=== PATIENT | female | born 1990 | race Caucasian/White ===

== ENCOUNTER 2024-01-11 13:37 | Outpatient (AMB) | payer OTHER, SELFPAY ==
--- NOTE | 2024-01-11 13:42 | MHC.OFFVIS ---
Vital Signs 01/11/24 13:53 Height 5 ft 7 in Weight 161 lb BMI 25.2 BP 128/70 Blood Pressure Location Lt brachial Position Sitting Respiration 18 Pulse 104 H Pulse Source Pulse Oximeter Pulse Oximetry (%) 100 Oxygen Delivery Method Room Air Intake Visit Reasons: ITDD REFILL DISCUSSION Intake Note: Patient comes in for initial visit was referred by primary care. Reports pain 05/19. Allergies contrast dye Allergy (Uncoded 01/11/24 13:45) Anaphylaxis HPI Comments Details: Oly is very pleasant 33 years old female who presents with my office in complains on pain in the left upper extremity as well as pain in bilateral lower extremities. She reported today that she was diagnose in February of 2019 with Complex regional pain syndrome of the left upper extremity and Complex regional pain syndrome of bilateral lower extremities. 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 She also had prolonged and difficult labor a later on and she developed Complex regional pain syndrome of bilateral lower extremities as the results of this. She was given spinal cord stimulator Polyplus-transfection which is not working now. Apparently she has 1 electrode in the cervical spine in 1 electrode in the lumbar spine. She denied any help from SCS. She also for the treatment of her pain received intrathecal drug delivery system pain pump she reports that the pain pump catheter is positioned approximately T5 level. She today presented as a new patient in my office with only 3 cc left in her pain pump. She is currently he is on 0.25 mg of morphine in the pump. She is working full-time. She can not sleep normally can not do activities of daily living can not take care of herself and can not function normally because of her pain. Weather changes in movements aggravate her pain. Sometimes heat applications help her pain. The pain is most severe in the evening and less severe in the morning. In terms of tissue damage he reports her pain as pulsing and pounding, pinching and crushing, hot burning and searing, tingling and stinging, dull, hurting, heavy, tiring and exhausting, sickening suffocating, punishing and killing, cool, called, freezing sensation. Her past medical history significant for history of asthma and dysrhythmia she also was diagnosed with ovarian cyst. Her past surgical history significant for hysterectomy pain pump implantation in 2021 and spinal cord stimulation 2016 and 2020. She denies smoking cigarettes she denies drinking alcohol she admits caffeinated beverages she denies recreational drugs. She has currently on not any oral opioid medications source or any schedule II medication. Review of Systems Const All systems reviewed & are unremarkable except as noted in HPI and below ENT Reports Normal hearing present Neuro Reports Normal hearing present, Denies Abnormal speech present, Denies confusion and Denies Sensory deficit (Neuro) Psych Denies confusion Physical Exam Vital Signs: Last Vital Signs Pulse 104 H 01/11/24 13:53 Resp 18 01/11/24 13:53 BP 128/70 01/11/24 13:53 Pulse Ox 100 01/11/24 13:53 Oxygen Delivery Method Room Air 01/11/24 13:53 BMI result Body Mass Index 25.2 Const General: no acute distress; No confusion Orientation/consciousness: patient oriented x3 and No confusion Eyes General: appearance normal, both eyes and all related structures Pupils: Equal, round and reactive pupils present EOM: EOMs intact bilaterally Neck Neck: Yes full ROM Chest Chest palpation & inspection: normal inspection of the chest Resp Effort & Inspection: normal respiratory effort, able to speak in complete sentences, normal respiratory pattern, no audible wheezes and no cough Cardio Jugular venous distension: no JVD GI Inspection: Yes normal to inspection Neuro General: patient oriented x3, gait normal and No confusion Cranial nerves: Yes CN's II-XII intact bilaterally, Yes Equal, round and reactive pupils present, Yes Normal hearing present and Yes Ability to bilaterally elevate shoulders present Speech: No Abnormal speech present Gait exam (Neuro): Normal gait present Motor exam (neuro): 5/5 motor strength present throughout Sensory Exam: No Sensory deficit (Neuro) Extrem General: No pedal edema Psych Speech and movement: Normal speech and movement present Affect: normal affect Attitude: cooperative Thought process: Normal thought process present Thought content: Normal thought content present Insight: Good insight present (Psych) Judgement: Good judgement present (Psych) Assessment & Plan Assessment & Plan (1) Complex regional pain syndrome i of lower limb, bilateral: Code(s): G90.523 - Complex regional pain syndrome I of lower limb, bilateral Category: Medical (2) Complex regional pain syndrome i of left upper limb: Code(s): G90.512 - Complex regional pain syndrome I of left upper limb Category: Medical (3) Chronic pain syndrome: Code(s): G89.4 - Chronic pain syndrome Category: Medical (4) Implantable intrathecal infusion pump present: Code(s): Z96.89 - Presence of other specified functional implants Category: Medical Plan I will schedule this patient for pump refill annette. She is running out of the medication so we need to fill her medication up. She reports that she receives medication at her current location once in 6 months. This is absolutely unacceptable. I informed the patient that at the best we will be able to refill her pump once in 2-3 months. I will see this patient for the pump refill. Coding Level of Care Code Est Pt Level 3 (99338) Diagnoses Complex regional pain syndrome i of lower limb, bilateral G90.523 Complex regional pain syndrome i of left upper limb G90.512 Chronic pain syndrome G89.4 Implantable intrathecal infusion pump present Z96.89
[2024-01-11 13:53] VITALS: BP 128/70; PULSE 104; RESP 18; O2SAT 100; BMI 25.2
== END 2024-01-11 14:06 | disposition home or self-care (01) ==
PROVIDERS: Visit Provider Anesthesiology
DX: G90.523 Complex regional pain syndrome I of lower limb, bilateral (principal); G90.512 Complex regional pain syndrome I of left upper limb; G89.4 Chronic pain syndrome; Z96.89 Presence of other specified functional implants
CPT/HCPCS: 99203

== ENCOUNTER → 2024-01-11 13:37 | Outpatient (BNVA) | payer OTHER, SELFPAY | PROVIDERS: Visit Provider Anesthesiology ==

== ENCOUNTER 2024-01-14 08:52 | Outpatient (AMB) | payer OTHER, SELFPAY ==
--- NOTE | 2024-01-14 09:10 | MHC.OFFVIS ---
Vital Signs 01/14/24 09:21 Height 5 ft 7 in Weight 161 lb BMI 25.2 BP 122/72 Blood Pressure Location Lt brachial Position Sitting Respiration 16 Pulse 106 H Pulse Source Pulse Oximeter Pulse Oximetry (%) 99 Oxygen Delivery Method Room Air Intake Visit Reasons: ITDD refill Intake Note: Patient comes in for intrathecal medication refill. Reports pain 05/19. Allergies contrast dye Allergy (Uncoded 01/11/24 13:45) Anaphylaxis HPI Comments Details: Oly is very pleasant 33 years old female who presents with my office in complains on pain in the left upper extremity as well as pain in bilateral lower extremities. Diagnosis of Complex regional pain syndrome of the left upper extremity and Complex regional pain syndrome of bilateral lower extremities was established in 2019. Left upper extremity CRPS is secondary to work trauma, bilateral lower extremity Complex regional pain syndrome developed after prolonged vaginal delivery. She has not working [employer] spinal cord stimulator 1 lead in the cervical and 1 lead in the thoracic spine. She reports good pain control in the beginning of the time after the refill however she reports fading of the effect of the medicine closer to the next refill. She stated that she was refilled once in 6 months back in [place] where she was residing before she came here. I DDD discussed today, the pump was refilled today, the dose was increased 36%, the patient is recommended to contact [employer] reps. to schedule restart of the [employer] SCS and try DTM protocol. She also will be given personal group therapy counselor device to handle the opioids in the pain pump better. Review of Systems Const All systems reviewed & are unremarkable except as noted in HPI and below ENT Reports Normal hearing present Neuro Reports Normal hearing present, Denies Abnormal speech present, Denies confusion and Denies Sensory deficit (Neuro) Psych Denies confusion Physical Exam Vital Signs: Last Vital Signs Pulse 106 H 01/14/24 09:21 Resp 16 01/14/24 09:21 BP 122/72 01/14/24 09:21 Pulse Ox 99 01/14/24 09:21 Oxygen Delivery Method Room Air 01/14/24 09:21 BMI result Body Mass Index 25.2 Const General: no acute distress; No confusion Orientation/consciousness: patient oriented x3 and No confusion Eyes General: appearance normal, both eyes and all related structures Pupils: Equal, round and reactive pupils present EOM: EOMs intact bilaterally Neck Neck: Yes full ROM Chest Chest palpation & inspection: normal inspection of the chest Resp Effort & Inspection: normal respiratory effort, able to speak in complete sentences, normal respiratory pattern, no audible wheezes and no cough Cardio Jugular venous distension: no JVD GI Inspection: Yes normal to inspection Neuro General: patient oriented x3, gait normal and No confusion Cranial nerves: Yes CN's II-XII intact bilaterally, Yes Equal, round and reactive pupils present, Yes Normal hearing present and Yes Ability to bilaterally elevate shoulders present Speech: No Abnormal speech present Gait exam (Neuro): Normal gait present Motor exam (neuro): 5/5 motor strength present throughout Sensory Exam: No Sensory deficit (Neuro) Extrem General: No pedal edema Psych Speech and movement: Normal speech and movement present Affect: normal affect Attitude: cooperative Thought process: Normal thought process present Thought content: Normal thought content present Insight: Good insight present (Psych) Judgement: Good judgement present (Psych) Assessment & Plan Assessment & Plan (1) Complex regional pain syndrome i of lower limb, bilateral: Code(s): G90.523 - Complex regional pain syndrome I of lower limb, bilateral Category: Medical (2) Complex regional pain syndrome i of left upper limb: Code(s): G90.512 - Complex regional pain syndrome I of left upper limb Category: Medical (3) Chronic pain syndrome: Code(s): G89.4 - Chronic pain syndrome Category: Medical Plan: Intrathecal pain pump refill Patient presented to the office today?for refill of ITDDD medication The name and date of were verified and informed consent was obtained for the procedure. Time out completed prior to the procedure. The pump was interrogated and the residual amount of fluid was found to be 3.4 ml. Patient was assisted to the exam table and positioned prone.? The area of the intrathecal drug delivery device at right upper buttock exposed; Ultrasound probe applied over the area of the pump, central refill port identified and marked on the skin.?THE AREA OF THE INTRATHECAL PUMP WAS then PREPPED WITH CHLORAPREP.? The sterile fenestrated drape was applied over the area of the pump. Sterile gloves were worn and of the aspiration system was assembled containing 2in 22gauge non-coring needle, the needle was connected to extension tubing which was connected to a 20cc sterile syringe. The pain pump was then palpated under the skin in the patient's right buttock area. The needle was inserted through the skin into the central plug of the pain pump and clear fluid was aspirated.? A total of 2.2 mL of clear fluid was withdrawn into the syringe and discarded by two staff members. [facility] Name and on medication syringe verified with patient prior to instillation. The admixture containing morphine 2 milligrams/mL was compounded by [facility] pharmacy and arrived in a 20cc syringe. The syringe was connected to the bacterial filter, and then to the extension tubing. The medication was slowly instilled into the pump with aspirations at 15cc 10cc and 5cc rojas.? At completion the needle was withdrawn and a Band-Aid was applied to the site. The pump was reprogrammed for the doses continuous dose morphine 32719 mg per day, this is 36.1% increase from previous dose of 0.2748 mg per day. The patient tolerated procedure well. (4) Implantable intrathecal infusion pump present: Code(s): Z96.89 - Presence of other specified functional implants Category: Medical Plan The pump is refilled as above. New appointment is scheduled on 04/07/2024. She will be working on DTM protocol and she will be working on obtaining PTM device from [employer]. Coding Level of Care Code Tele Est Pt Level 3 (42994) Procedure Only Diagnoses Complex regional pain syndrome i of lower limb, bilateral G90.523 Complex regional pain syndrome i of left upper limb G90.512 Chronic pain syndrome G89.4 Implantable intrathecal infusion pump present Z96.89
[2024-01-14 09:21] VITALS: BP 122/72; PULSE 106; RESP 16; O2SAT 99; BMI 25.2
== END 2024-01-14 09:53 | disposition home or self-care (01) ==
PROVIDERS: Visit Provider Anesthesiology
DX: G90.523 Complex regional pain syndrome I of lower limb, bilateral (principal); G90.512 Complex regional pain syndrome I of left upper limb; G89.4 Chronic pain syndrome; Z96.89 Presence of other specified functional implants; Z45.1 Encounter for adjustment and management of infusion pump
CPT/HCPCS: 62370; 99213

== ENCOUNTER → 2024-01-14 08:52 | Outpatient (BNVA) | payer OTHER, SELFPAY | PROVIDERS: Visit Provider Anesthesiology | DX: G90.523 Complex regional pain syndrome I of lower limb, bilateral (principal); G90.512 Complex regional pain syndrome I of left upper limb; G89.4 Chronic pain syndrome; Z45.1 Encounter for adjustment and management of infusion pump; Z96.89 Presence of other specified functional implants | CPT/HCPCS: 62370 ==

== ENCOUNTER 2024-04-04 08:24 | Outpatient (AMB) | payer OTHER, SELFPAY ==
--- NOTE | 2024-04-04 08:45 | A.OFFVIS_ITS ---
Vital Signs 04/04/24 08:49 Height 5 ft 7 in Weight 165 lb BMI 25.8 BP 116/65 Blood Pressure Location Lt brachial Position Sitting Respiration 14 Pulse 112 H Pulse Source Pulse Oximeter Pulse Oximetry (%) 93 Oxygen Delivery Method Room Air Intake Visit Reasons: ITDD Refill Allergies contrast dye Allergy (Uncoded 04/04/24 08:51) Anaphylaxis Medication List - Last Reconciled 04/04/24 by Lisbeth Elias LPN cyclobenzaprine 10 mg PO BID PRN meloxicam 7.5 mg PO DAILY 30 days HPI HPI ITDD Refill: Details: 33-year-old female who presents today to the office for a ITDD refill. Denies any recent cough, cold, infection, fever or other significant changes in medical history since last office visit.? Review of Systems Const All systems reviewed & are unremarkable except as noted in HPI and below Physical Exam Vital Signs: Last Vital Signs Pulse 112 H 04/04/24 08:49 Resp 14 04/04/24 08:49 BP 116/65 04/04/24 08:49 Pulse Ox 93 04/04/24 08:49 Oxygen Delivery Method Room Air 04/04/24 08:49 BMI result Body Mass Index 25.8 General: Appears afebrile. Alert and oriented. Mood and affect appropriate. Follows and participates in conversation appropriately. Respiratory effort is unlabored. Able to transition from sit to stand unassisted. Ambulates with bilaterally normal heel strike and toe off. Office Procedures Details: Intra-thecal Pump Refill The name and date of were verified, and informed consent was obtained for the procedure. The pump was interrogated, and the residual amount of fluid was found to be 4 mL. Patient was positioned prone on the bed and the area of the intrathecal pump was prepped with chloraprep. The fenestrated drape was sterilely applied over the area of the pump. Sterile gloves were worn and the aspiration system was assembled containing 2 22-gauge noncoring needle; the needle was connected to extension tubing which was connected to the 20-cc sterile syringe. The extension tubing was clamped. The pain pump was palpated under the skin in the patient's buttock. The needle was inserted through the skin and the central plug of the pain pump and fluid was aspirated. 4 mL of clear fluid were aspirated. After that, a new batch of medication was obtained. Refilled with morphine 2 milligrams per ml. The admixture was premixed in a 20cc syringe by [facility] compounding pharmacy. The syringe was connected to the bacterial filter, and then connected to the extension tubing. After that, the medication in the syringe was slowly instilled into the pump with aspirations at 20ml was refilled. Increased the rate by 6% per 24 hours. The pump was programmed and updated per the latest parameters. The details of this program are available in the pump log that was saved and uploaded to the EMR. 33573 - Refill Procedure code (CPT) selection complete Results Reviewed Results Reviewed: No imaging is available for review. Assessment & Plan Assessment & Plan (1) Implantable intrathecal infusion pump present: Code(s): Z96.89 - Presence of other specified functional implants Category: Medical (2) Chronic pain syndrome: Code(s): G89.4 - Chronic pain syndrome Category: Medical Plan Patient is status post ITDD refill. Patient tolerated procedure well and was discharged home in stable condition with discharge instructions.? All questions were answered. Follow up as needed. Scribed for Dr. Izaguirre by Clovis Bonilla, medical assistant dermatology, on 04/04/2024. I, Dr. Izaguirre, have personally reviewed and agree with the information entered by the scribe. Coding Level of Care Code Procedure Only Diagnoses Implantable intrathecal infusion pump present Z96.89 Chronic pain syndrome G89.4 CPT Codes Intraethecal Drug Delivery System - CPT: 01240 - Refill ([id number])
[2024-04-04 08:49] VITALS: BP 116/65; PULSE 112; RESP 14; O2SAT 93; BMI 25.8
== END 2024-04-04 09:29 | disposition home or self-care (01) ==
PROVIDERS: Visit Provider Internal Medicine
DX: Z45.1 Encounter for adjustment and management of infusion pump (principal)
CPT/HCPCS: 62370

== ENCOUNTER → 2024-04-04 08:24 | Outpatient (BNVA) | payer OTHER, SELFPAY | PROVIDERS: Visit Provider Internal Medicine | DX: Z45.1 Encounter for adjustment and management of infusion pump (principal); G89.4 Chronic pain syndrome | CPT/HCPCS: 62370 ==

== ENCOUNTER 2024-06-27 10:46 | Outpatient (AMB) | payer OTHER, SELFPAY ==
--- NOTE | 2024-06-27 10:49 | A.OFFVIS_ITS ---
Vital Signs 06/27/24 10:57 Height 5 ft 7 in Weight 167 lb 4 oz BMI 26.2 BP 111/68 Blood Pressure Location Lt brachial Position Sitting Respiration 16 Pulse 103 H Pulse Source Pulse Oximeter Pulse Oximetry (%) 100 Oxygen Delivery Method Room Air Intake Visit Reasons: ITDD Refill Intake Note: Patient comes in for intrathecal medication refill. Reports pain 05/19. Allergies contrast dye Allergy (Uncoded 04/04/24 08:51) Anaphylaxis HPI Comments Details: Oly is back in my office reporting increased pain in the bilateral lower extremities. She reports that she does not have PTM device. We could have started her on PTM here if [employer] has PTM device available. Otherwise she could purchase the PTM device from [employer] with a without discount. She reports that Complex regional pain syndrome is starting to get stronger. I will send for for EMG of bilateral lower extremities, she had EMG done in the past. I recommended her to bring the results of the EMG to the office of Dr. Goetz to compare. Prior: very pleasant 33 years old female who presents with my office in complains on pain in the left upper extremity as well as pain in bilateral lower extremities. Diagnosis of Complex regional pain syndrome of the left upper extremity and Complex regional pain syndrome of bilateral lower extremities was established in 2019. Left upper extremity CRPS is secondary to work trauma, bilateral lower extremity Complex regional pain syndrome developed after prolonged vaginal delivery. She has working [employer] spinal cord stimulator 1 lead in the cervical and 1 lead in the thoracic spine. She reports good pain control in the beginning of the time after the refill however she reports fading of the effect of the medicine closer to the next refill. She stated that she was refilled once in 6 months back in [place] where she was residing before she came here. I DDD discussed today, the pump was refilled today, the dose was increased 36%, the patient is recommended to contact [employer] reps. to schedule restart of the [employer] SCS and try DTM protocol. She also will be given personal cert occupational therapy asst device to handle the opioids in the pain pump better. Review of Systems Const All systems reviewed & are unremarkable except as noted in HPI and below ENT Reports Normal hearing present Neuro Reports Normal hearing present, Denies Abnormal speech present, Denies confusion and Denies Sensory deficit (Neuro) Psych Denies confusion Physical Exam Vital Signs: Last Vital Signs Pulse 103 H 06/27/24 10:57 Resp 16 06/27/24 10:57 BP 111/68 06/27/24 10:57 Pulse Ox 100 06/27/24 10:57 Oxygen Delivery Method Room Air 06/27/24 10:57 BMI result Body Mass Index 26.2 Const General: no acute distress; No confusion Orientation/consciousness: patient oriented x3 and No confusion Eyes General: appearance normal, both eyes and all related structures Pupils: Equal, round and reactive pupils present EOM: EOMs intact bilaterally Neck Neck: Yes full ROM Chest Chest palpation & inspection: normal inspection of the chest Resp Effort & Inspection: normal respiratory effort, able to speak in complete sentences, normal respiratory pattern, no audible wheezes and no cough Cardio Jugular venous distension: no JVD GI Inspection: Yes normal to inspection Neuro General: patient oriented x3, gait normal and No confusion Cranial nerves: Yes CN's II-XII intact bilaterally, Yes Equal, round and reactive pupils present, Yes Normal hearing present and Yes Ability to bilaterally elevate shoulders present Speech: No Abnormal speech present Gait exam (Neuro): Normal gait present Motor exam (neuro): 5/5 motor strength present throughout Sensory Exam: No Sensory deficit (Neuro) Extrem General: No pedal edema Psych Speech and movement: Normal speech and movement present Affect: normal affect Attitude: cooperative Thought process: Normal thought process present Thought content: Normal thought content present Insight: Good insight present (Psych) Judgement: Good judgement present (Psych) Assessment & Plan Assessment & Plan (1) Complex regional pain syndrome i of lower limb, bilateral: Code(s): G90.523 - Complex regional pain syndrome I of lower limb, bilateral Category: Medical (2) Complex regional pain syndrome i of left upper limb: Code(s): G90.512 - Complex regional pain syndrome I of left upper limb Category: Medical (3) Chronic pain syndrome: Code(s): G89.4 - Chronic pain syndrome Category: Medical Plan: Intrathecal pain pump refill Patient presented to the office today?for refill of ITDDD medication The name and date of were verified and informed consent was obtained for the procedure. Time out completed prior to the procedure. The pump was interrogated and the residual amount of fluid was found to be 3.4 ml. Patient was assisted to the exam table and positioned prone.? The area of the intrathecal drug delivery device at right upper buttock exposed; Ultrasound probe applied over the area of the pump, central refill port identified and marked on the skin.?THE AREA OF THE INTRATHECAL PUMP WAS then PREPPED WITH CHLORAPREP.? The sterile fenestrated drape was applied over the area of the pump. Sterile gloves were worn and of the aspiration system was assembled containing 2in 22gauge non-coring needle, the needle was connected to extension tubing which was connected to a 20cc sterile syringe. The pain pump was then palpated under the skin in the patient's right buttock area. The needle was inserted through the skin into the central plug of the pain pump and clear fluid was aspirated.? A total of 2.4 mL of clear fluid was withdrawn into the syringe and discarded by two staff members. Med[facility]. Name and on medication syringe verified with patient prior to instillation. The admixture containing morphine 2 milligrams/mL was compounded by [facility] pharmacy and arrived in a 20cc syringe. The syringe was connected to the bacterial filter, and then to the extension tubing. The medication was slowly instilled into the pump with aspirations at 15cc 10cc and 5cc rojas.? At completion the needle was withdrawn and a Band-Aid was applied to the site. The pump was reprogrammed for the doses continuous dose morphine 0.3741 mg per day, The patient tolerated procedure well. The new pump refill will be scheduled on 09/22/2024 (4) Implantable intrathecal infusion pump present: Code(s): Z96.89 - Presence of other specified functional implants Category: Medical Plan The pump is refilled as above next pump refill 09/22/2024 Orders: Orders NE electromyogram (EMG) Today G90.523 - Complex regional pain syndrome I of lower limb, bilateral Coding Level of Care Code Est Pt Level 3 (25051) Procedure Only Diagnoses Complex regional pain syndrome i of lower limb, bilateral G90.523 Complex regional pain syndrome i of left upper limb G90.512 Chronic pain syndrome G89.4 Implantable intrathecal infusion pump present Z96.89
[2024-06-27 10:57] VITALS: BP 111/68; PULSE 103; RESP 16; O2SAT 100; BMI 26.2
== END 2024-06-27 11:21 | disposition home or self-care (01) ==
PROVIDERS: Visit Provider Anesthesiology
DX: G90.523 Complex regional pain syndrome I of lower limb, bilateral (principal); G90.512 Complex regional pain syndrome I of left upper limb; G89.4 Chronic pain syndrome; Z96.89 Presence of other specified functional implants; Z45.1 Encounter for adjustment and management of infusion pump
CPT/HCPCS: 62370; 99213

== ENCOUNTER → 2024-06-27 10:46 | Outpatient (BNVA) | payer OTHER, SELFPAY | PROVIDERS: Visit Provider Anesthesiology | DX: Z45.1 Encounter for adjustment and management of infusion pump (principal); G90.523 Complex regional pain syndrome I of lower limb, bilateral; G90.512 Complex regional pain syndrome I of left upper limb; G89.4 Chronic pain syndrome | CPT/HCPCS: 62370 ==

== ENCOUNTER 2024-07-22 13:21 | Outpatient (REF) | payer OTHER, SELFPAY ==
--- NOTE | 2024-07-22 13:26 | EMG_ITS ---
Chief complaint: History of CRPS. Complaining of leg pain and weakness, worse on left. At rest, noted that left foot is inverted. Passive ankle range of motion is full. She has a spinal cord stimulator and morphine pump. Reason for referral: Evaluate for neuropathy Referred by: Dr. Clark Procedure done: Bilateral lower extremity NCS/EMG Precautions and/or limitations: Spinal cord stimulator turned off for this test. The limb temperature was monitored continuously and remained between 32-36 degrees C during the performance of the NCS. Nerve Conduction Studies Anti Sensory Summary Table ?Stim Site NR Onset (ms) Norm Onset (ms) Peak (ms) Norm Peak (ms) O-P Amp (?V) Norm O-P Amp Site1 Site2 Delta-0 (ms) Dist (cm) Leonidas (m/s) Norm Leonidas (m/s) Left Sural Anti Sensory (Lat Mall) Calf ? 3.2 3.9 <4.0 9.9 >5.0 Calf Lat Mall 3.2 14.0 44 Right Sural Anti Sensory (Lat Mall) Calf ? 3.0 3.9 <4.0 16.1 >5.0 Calf Lat Mall 3.0 14.0 47 Motor Summary Table ?Stim Site NR Onset (ms) Norm Onset (ms) O-P Amp (mV) Norm O-P Amp iAmp (mV) Amp (1st) (%) Site1 Site2 Delta-0 (ms) Dist (cm) Leonidas (m/s) Norm Leonidas (m/s) Left Peroneal Motor (Ext Dig Brev) Ankle ? 6.5 <4.0 3.1 >2.5 3.9 100.0 Ankle Ext Dig Brev 6.5 0.0 B Fib ? 14.1 3.1 3.7 100.0 B Fib Ankle 7.6 35.5 47 >40 Poplt ? 14.7 2.7 3.4 87.1 Poplt B Fib 0.6 5.0 83 >40 Right Peroneal Motor (Ext Dig Brev) Ankle ? 5.1 <4.0 4.1 >2.5 5.3 100.0 Ankle Ext Dig Brev 5.1 0.0 B Fib ? 12.3 3.7 4.8 90.2 B Fib Ankle 7.2 34.0 47 >40 Poplt ? 13.4 3.8 5.0 92.7 Poplt B Fib 1.1 6.0 55 >40 Left Tibial Motor (Abd Sheldon Brev) Ankle ? 4.6 <5 6.9 >2.5 9.6 100.0 Ankle Abd Sheldon Brev 4.6 0.0 Knee ? 13.8 8.6 12.4 124.6 Knee Ankle 9.2 42.0 46 >40 Right Tibial Motor (Abd Sheldon Brev) Ankle ? 4.1 <5 6.5 >2.5 9.6 100.0 Ankle Abd Sheldon Brev 4.1 0.0 Knee ? 13.5 6.0 9.5 92.3 Knee Ankle 9.4 42.0 45 >40 EMG ?Side Muscle Nerve Root Ins Act Fibs Psw Amp Dur Poly Recrt Int Pat Comment Right Peroneus Long Sup Br Peron L5-S1 Incr 1+ 1+ Nml Nml 0 Nml Complete Right AbdHallucis MedPlantar S1-2 Nml Nml Nml Nml Nml 0 Nml Complete Right AntTibialis Dp Br Peron L4-5 Nml Nml Nml Nml Nml 0 Nml Complete Right MedGastroc Tibial S1-2 Nml Nml Nml Nml Nml 0 Nml Complete Right VastusMed Femoral L2-4 Nml Nml Nml Nml Nml 0 Nml Complete Left AbdHallucis MedPlantar S1-2 Nml Nml Nml Nml Nml 0 Nml Complete Left AntTibialis Dp Br Peron L4-5 Nml Nml Nml Nml Nml 0 Nml Complete Left MedGastroc Tibial S1-2 Nml Nml Nml Nml Nml 0 Nml Complete Left VastusMed Femoral L2-4 Nml Nml Nml Nml Nml 0 Nml Complete Left Peroneus Long Sup Br Peron L5-S1 Nml Nml Nml Nml Nml 0 Nml Complete FINDINGS: Bilateral peroneal nerves showed prolonged distal latency, normal amplitude and normal conduction velocity. All other nerves tested were within normal. Concentric needle EMG was performed in selected muscles of the bilateral lower extremity. Study revealed signs of electric abnormalities as shown in the table above. Right peroneus longus showed increased insertional activity, PSWs and fibrillations. IMPRESSION: 1. This is an abnormal study. 2. 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 3. There is no electrodiagnostic evidence for tibial neuropathy. lumbosacral plexopathy, lumbar radiculopathy, or peripheral neuropathy. Thank you for your kind referral. Brianda Gudino MD, NELLI Board Certified, [place] Board [employer] and Rehabilitation (ABPMR) Board Certified, [place] Board of Electrodiagnostic Medicine (ABEM) CODIN [id number] x 2 MTDD
== END 2024-07-22 13:22 | disposition home or self-care (01) ==
LOC: HO.NEURO 13:21
PROVIDERS: Visit Provider Anesthesiology
DX: G90.523 Complex regional pain syndrome I of lower limb, bilateral (principal)
CPT/HCPCS: 95886; 95909

== ENCOUNTER → 2024-07-22 13:26 | Outpatient (BNV) | payer OTHER, SELFPAY | PROVIDERS: Visit Provider Physical Medicine & Rehabilitation | DX: G90.523 Complex regional pain syndrome I of lower limb, bilateral (principal) | CPT/HCPCS: 95886; 95909 ==

== ENCOUNTER 2024-08-22 08:57 | Outpatient (AMB) | payer OTHER, SELFPAY ==
[2024-08-22 09:11] VITALS: BP 119/68; PULSE 106; O2SAT 100; BMI 25.7
--- NOTE | 2024-08-22 09:11 | MHC.OFFVIS ---
Vital Signs 08/22/24 09:11 Height 5 ft 7 in Weight 164 lb BMI 25.7 BP 119/68 Blood Pressure Location Rt brachial Position Sitting Pulse 106 H Pulse Source Pulse Oximeter Pulse Oximetry (%) 100 Oxygen Delivery Method Room Air Intake Visit Reasons: EMG results/discuss stimulator [employer] Required: No Allergies contrast dye Allergy (Uncoded 08/22/24 09:11) Anaphylaxis Medication List - Last Reconciled 08/22/24 by Elisha Yoon, TEXTILE COLORIST DYER cyclobenzaprine 10 mg PO BID PRN 30 days meloxicam 7.5 mg PO ONCE 30 days HPI Comments Details: Oly is back in my office to discuss the results of the EMG. On EMG there is bilateral peroneal nerve neuropathy diagnose. We discussed possibility of further treatment of her pain. I will send her for occupational therapy to help her to avoid falling with intermittent weakness in the left lower extremity. I also will send her for neurology consult to Dr. Juarez and Adrian. She reports pain is getting stronger in the bilateral lower extremities and she reports falling more often. We agreed that I will schedule her for psychological evaluation. I will try to perform [employer] spinal cord stimulator trial with position of the leads in the bilateral gutters. I also offered her to try Prialt in her pump in addition to her morphine or as the sole medicine. We will be sending request to [facility] on the stevenson of the Prialt for this patient. If this stevenson will be acceptable and affordable for her we will make a new admixture of Prialt and morphine. Prior: very pleasant 33 years old female who presents with my office in complains on pain in the left upper extremity as well as pain in bilateral lower extremities. Diagnosis of Complex regional pain syndrome of the left upper extremity and Complex regional pain syndrome of bilateral lower extremities was established in 2019. Left upper extremity CRPS is secondary to work trauma, bilateral lower extremity Complex regional pain syndrome developed after prolonged vaginal delivery. She has working Medtronic spinal cord stimulator 1 lead in the cervical and 1 lead in the thoracic spine. She reports good pain control in the beginning of the time after the refill however she reports fading of the effect of the medicine closer to the next refill. She stated that she was refilled once in 6 months back in [place] where she was residing before she came here. I DDD discussed today, the pump was refilled today, the dose was increased 36%, the patient is recommended to contact [employer] by [employer] reps. to schedule restart of the [employer] SCS and try DTM protocol. She also will be given personal oxygen therapy teacher device to handle the opioids in the pain pump better. Review of Systems Const All systems reviewed & are unremarkable except as noted in HPI and below ENT Reports Normal hearing present Neuro Reports Normal hearing present, Denies Abnormal speech present, Denies confusion and Denies Sensory deficit (Neuro) Psych Denies confusion Physical Exam Vital Signs: Last Vital Signs Pulse 106 H 08/22/24 09:11 BP 119/68 08/22/24 09:11 Pulse Ox 100 08/22/24 09:11 Oxygen Delivery Method Room Air 08/22/24 09:11 BMI result Body Mass Index 25.7 Const General: no acute distress; No confusion Orientation/consciousness: patient oriented x3 and No confusion Eyes General: appearance normal, both eyes and all related structures Pupils: Equal, round and reactive pupils present EOM: EOMs intact bilaterally Neck Neck: Yes full ROM Chest Chest palpation & inspection: normal inspection of the chest Resp Effort & Inspection: normal respiratory effort, able to speak in complete sentences, normal respiratory pattern, no audible wheezes and no cough Cardio Jugular venous distension: no JVD GI Inspection: Yes normal to inspection Neuro General: patient oriented x3, gait normal and No confusion Cranial nerves: Yes CN's II-XII intact bilaterally, Yes Equal, round and reactive pupils present, Yes Normal hearing present and Yes Ability to bilaterally elevate shoulders present Speech: No Abnormal speech present Gait exam (Neuro): Normal gait present Motor exam (neuro): 5/5 motor strength present throughout Sensory Exam: No Sensory deficit (Neuro) Extrem General: No pedal edema Psych Speech and movement: Normal speech and movement present Affect: normal affect Attitude: cooperative Thought process: Normal thought process present Thought content: Normal thought content present Insight: Good insight present (Psych) Judgement: Good judgement present (Psych) Assessment & Plan Assessment & Plan (1) Left leg weakness: Code(s): R29.898 - Other symptoms and signs involving the musculoskeletal system Category: Medical (2) Complex regional pain syndrome i of lower limb, bilateral: Code(s): G90.523 - Complex regional pain syndrome I of lower limb, bilateral Category: Medical (3) Complex regional pain syndrome i of left upper limb: Code(s): G90.512 - Complex regional pain syndrome I of left upper limb Category: Medical (4) Chronic pain syndrome: Code(s): G89.4 - Chronic pain syndrome Category: Medical Plan 1. Referral to physical therapy/occupational therapy to find some supportive orthotic devices to prevent her from falling when she feels weakness in the left lower extremity. 2. She will be calling [facility] to get psychological evaluation done and after that we will consider a trial of [employer] SCS in lumbar gutter positioned bilaterally to help her pain in bilateral lower extremities. 3. We will investigate how expensive Prialt will be for this patient and if it is affordable for her we will add Prialt and her current medication in the intrathecal pain pump. Orders: Orders OT Evaluation and Treatment Today G90.523 - Complex regional pain syndrome I of lower limb, bilateral, R29.898 - Other symptoms and signs involving the musculoskeletal system Referrals Neurology Referral G89.4 - Chronic pain syndrome, G90.512 - Complex regional pain syndrome I of left upper limb, G90.523 - Complex regional pain syndrome I of lower limb, bilateral, R29.898 - Other symptoms and signs involving the musculoskeletal system Patient Instructions: I here by testify that I spent 35 minutes in conversation with this patient as well as planning her care providing appropriate orders, evaluating prior records and organizing this note. Coding Level of Care Code Est Pt Level 4 (03542) Diagnoses Left leg weakness R29.898 Complex regional pain syndrome i of lower limb, bilateral G90.523 Complex regional pain syndrome i of left upper limb G90.512 Chronic pain syndrome G89.4
== END 2024-08-22 09:38 | disposition home or self-care (01) ==
PROVIDERS: Visit Provider Anesthesiology
DX: R29.898 Other symptoms and signs involving the musculoskeletal system (principal); G90.523 Complex regional pain syndrome I of lower limb, bilateral; G90.512 Complex regional pain syndrome I of left upper limb; G89.4 Chronic pain syndrome
CPT/HCPCS: 99214

== ENCOUNTER → 2024-08-22 08:57 | Outpatient (BNVA) | payer OTHER, SELFPAY | PROVIDERS: Visit Provider Anesthesiology ==

== ENCOUNTER 2024-09-22 10:58 | Outpatient (AMB) | payer OTHER, SELFPAY ==
[2024-09-22 10:59] VITALS: BP 120/68; PULSE 108; O2SAT 100; BMI 25.6
--- NOTE | 2024-09-22 10:59 | MHC.OFFVIS ---
Vital Signs 09/22/24 10:59 Height 5 ft 7 in Weight 163 lb 8 oz BMI 25.6 BP 120/68 Blood Pressure Location Lt brachial Position Sitting Pulse 108 H Pulse Source Pulse Oximeter Pulse Oximetry (%) 100 Oxygen Delivery Method Room Air Intake Visit Reasons: ITDD REFILL Allergies contrast dye Allergy (Uncoded 09/22/24 10:59) Anaphylaxis HPI Comments Details: Oly is back in my office to refill her pain pump. Change the medication to combination of morphine 2 milligrams/mL and Prialt 8 micro g per mL. The patient will be getting 1.5 micro g of Prialt a day. Bridge bolus was given to the patient for 51 hours. On EMG there is bilateral peroneal nerve neuropathy diagnose. She was approved for [employer] SCS trial from psychological standpoint. She is suffering from Complex regional pain syndrome type 2. However unfortunately the patient has Medtronic spinal cord stimulator positioned in her thoracic and cervical spine. The patient reports that she feels vibration sensation with Medtronic spinal cord stimulator action. Therefore I believe that this spinal cord stimulator small positioned. I will send her for cervical as well as thoracic spine x-rays to evaluate position of the devices. Possibility exists to remove the existing device and repositioned it a new with [place] spinal cord stimulator alpha battery. Prior: very pleasant 33 years old female who presents with my office in complains on pain in the left upper extremity as well as pain in bilateral lower extremities. Diagnosis of Complex regional pain syndrome of the left upper extremity and Complex regional pain syndrome of bilateral lower extremities was established in 2019. Left upper extremity CRPS is secondary to work trauma, bilateral lower extremity Complex regional pain syndrome developed after prolonged vaginal delivery. She has working Medtronic spinal cord stimulator 1 lead in the cervical and 1 lead in the thoracic spine. She reports good pain control in the beginning of the time after the refill however she reports fading of the effect of the medicine closer to the next refill. She stated that she was refilled once in 6 months back in [place] where she was residing before she came here. Review of Systems Const All systems reviewed & are unremarkable except as noted in HPI and below ENT Reports Normal hearing present Neuro Reports Normal hearing present, Denies Abnormal speech present, Denies confusion and Denies Sensory deficit (Neuro) Psych Denies confusion Physical Exam Vital Signs: Last Vital Signs Pulse 108 H 09/22/24 10:59 BP 120/68 09/22/24 10:59 Pulse Ox 100 09/22/24 10:59 Oxygen Delivery Method Room Air 09/22/24 10:59 BMI result Body Mass Index 25.6 Const General: no acute distress; No confusion Orientation/consciousness: patient oriented x3 and No confusion Eyes General: appearance normal, both eyes and all related structures Pupils: Equal, round and reactive pupils present EOM: EOMs intact bilaterally Neck Neck: Yes full ROM Chest Chest palpation & inspection: normal inspection of the chest Resp Effort & Inspection: normal respiratory effort, able to speak in complete sentences, normal respiratory pattern, no audible wheezes and no cough Cardio Jugular venous distension: no JVD GI Inspection: Yes normal to inspection Neuro General: patient oriented x3, gait normal and No confusion Cranial nerves: Yes CN's II-XII intact bilaterally, Yes Equal, round and reactive pupils present, Yes Normal hearing present and Yes Ability to bilaterally elevate shoulders present Speech: No Abnormal speech present Gait exam (Neuro): Normal gait present Motor exam (neuro): 5/5 motor strength present throughout Sensory Exam: No Sensory deficit (Neuro) Extrem General: No pedal edema Psych Speech and movement: Normal speech and movement present Affect: normal affect Attitude: cooperative Thought process: Normal thought process present Thought content: Normal thought content present Insight: Good insight present (Psych) Judgement: Good judgement present (Psych) Assessment & Plan Assessment & Plan (1) Complex regional pain syndrome i of left upper limb: Code(s): G90.512 - Complex regional pain syndrome I of left upper limb Category: Medical (2) Pes equinus, acquired: Code(s): M21.6X9 - Other acquired deformities of unspecified foot Category: Medical (3) Complex regional pain syndrome i of lower limb, bilateral: Code(s): G90.523 - Complex regional pain syndrome I of lower limb, bilateral Category: Medical (4) Chronic pain syndrome: Code(s): G89.4 - Chronic pain syndrome Category: Medical Plan: Intrathecal pain pump refill Patient presented to the office today?for refill of ITDDD medication The name and date of were verified and informed consent was obtained for the procedure. Time out completed prior to the procedure. The pump was interrogated and the residual amount of fluid was found to be 2.1 ml. Patient was assisted to the exam table and positioned prone.? The area of the intrathecal drug delivery device at right upper buttock exposed; Ultrasound probe applied over the area of the pump, central refill port identified and marked on the skin.?THE AREA OF THE INTRATHECAL PUMP WAS then PREPPED WITH CHLORAPREP.? The sterile fenestrated drape was applied over the area of the pump. Sterile gloves were worn and of the aspiration system was assembled containing 2in 22gauge non-coring needle, the needle was connected to extension tubing which was connected to a 20cc sterile syringe. The pain pump was then palpated under the skin in the patient's right buttock area. The needle was inserted through the skin into the central plug of the pain pump and clear fluid was aspirated.? A total of 1.9 mL of clear fluid was withdrawn into the syringe and discarded by two staff members. [facility]. Name and on medication syringe verified with patient prior to instillation. The admixture containing morphine 2 milligrams/mL and Prialt 8 micro grams was compounded by [facility] pharmacy and arrived in a 20cc syringe. The syringe was connected to the bacterial filter, and then to the extension tubing. The medication was slowly instilled into the pump with aspirations at 15cc 10cc and 5cc rojas.? At completion the needle was withdrawn and a Band-Aid was applied to the site. The pump was reprogrammed for the doses continuous dose morphine 0.3741 mg and 1.5 micro g of Prialt a day. (5) Implantable intrathecal infusion pump present: Code(s): Z96.89 - Presence of other specified functional implants Category: Medical (6) Malfunction of spinal cord stimulator: Code(s): T85.192A - Other mechanical complication of implanted electronic neurostimulator of spinal cord electrode (lead), initial encounter Category: Medical Plan 1. Pump refill as above. We will escalate slowly Prialt while decrease dose of the morphine provided the Prialt has no side effects. 2. I will send her for x-ray of the cervical and thoracic spine to evaluate position of the spinal cord stimulators. 3. I will see her in the office in 3 weeks. Orders: Orders XR thoracic spine 3V Today Ritchie Clark MD T85.192A - Other mechanical complication of implanted electronic neurostimulator of spinal cord electrode (lead), initial encounter XR cervical spine 5V Today Ritchie Clark MD T85.192A - Other mechanical complication of implanted electronic neurostimulator of spinal cord electrode (lead), initial encounter Medications: New leg brace (EMMA Ankle Brace) As directed 1 ea 0RF Improved mobility foot support Ritchie Clark MD G90.512 - Complex regional pain syndrome I of left upper limb, M21.6X9 - Other acquired deformities of unspecified foot leg brace (EMMA Ankle Brace) As directed left foot AFO brace 1 ea 0RF Improved mobility foot support ANTHONY Santoro G90.512 - Complex regional pain syndrome I of left upper limb, M21.6X9 - Other acquired deformities of unspecified foot Patient Instructions: I here by testify that I spent 39 minutes in conversation with this patient as well as planning her care and organizing this note. Coding Level of Care Code Est Pt Level 4 (70188) Procedure Only Diagnoses Complex regional pain syndrome i of left upper limb G90.512 Pes equinus, acquired M21.6X9 Complex regional pain syndrome i of lower limb, bilateral G90.523 Chronic pain syndrome G89.4 Implantable intrathecal infusion pump present Z96.89 Malfunction of spinal cord stimulator T85.192A
--- OUTSIDE RECORDS SUMMARY | 2024-09-22 11:42 | XMS_ITS | Clinical Summary ---
Author Organization [facility] Address [address] [place] [address] Care Team Providers Care Marine Electronics Technician Name Role Phone Mayra Carrillo APRN Primary Care Provider [phone] Allergies Active Allergy Reactions Criticality Noted Date Comments Iodinated Contrast Media Anaphylaxis High 12/31/2023 Medications Medication Sig Dispensed Refills Start Date End Date Status meloxicam (MOBIC) 7.5 MG tablet Take 1 tablet (7.5 mg total) by mouth daily. 12/16/2023 Active cyclobenzaprine (FLEXERIL) 10 MG tablet Take 1 tablet (10 mg total) by mouth 2 (two) times a day. 12/19/2023 Active morphine (ROXANOL) 10 mg/5 mL solution 0.2499 mg by G Tube route daily. Pump in back Max Daily Amount: 0.2499 mg Active Active Problems Problem Noted Date Diagnosed Date Chronic pain syndrome 12/31/2023 Family History Medical History Relation Name Comments ADD / ADHD Brother Breast cancer Maternal Grandmother Thyroid cancer Mother Relation Name Status Comments Brother Maternal Grandmother Mother Social History Tobacco Use Types Packs/Day Years Used Date Smoking Tobacco: Never Smokeless Tobacco: Never Tobacco Cessation:Counseling Given: Not Answered Alcohol Use Standard Drinks/Week Comments Yes 0 (1 standard drink = 0.6 oz pur e alcohol) rare PHQ-2 Answer Date Recorded PHQ-2 Total Score 0 12/31/2023 Sex and Gender Information Value Date Recorded Sex Assigned at Not on file Gender Identity Not on file Sexual Orientation Not on file Last Filed Vital Signs Vital Sign Reading Time Taken Comments Blood Pressure 103/77 12/31/2023 1:08 PM EDT Pulse 84 12/31/2023 1:08 PM EDT Temperature 36.6 ??C (97.8 ??F) 12/31/2023 1:08 PM ED T Respiratory Rate 16 12/31/2023 1:08 PM EDT Oxygen Saturation 99% 12/31/2023 1:08 PM EDT Inhaled Oxygen Concentration - - Weight 71.5 kg (157 lb 9.6 oz) 12/31/2023 1:08 P M EDT Height 175.3 cm (5' 9 ) 12/31/2023 1:08 PM EDT Body Mass Index 23.27 12/31/2023 1:08 PM EDT Plan of Treatment Health Maintenance Due Date Last Done Comments Hepatitis C Virus Screening 1990 HIV Screening 10/16/2003 Physical 2008 DTaP/Tdap/Td Vaccines (1 - Tdap) 2009 Hepatitis B Vaccines (1 of 3 - 19+ 3-dose series) 2009 Pap Smear (Ages 21-65) 10/16/2011 Influenza Vaccine 03/10/2024 COVID-19 Vaccine ( - 2023-2 5 season) 2024 HPV Vaccines Aged Out No longer eligi ble based on patient's age to complete this topic Pneumococcal Vaccine: Pediat radha (0-5 Years) and At-Risk Patients (6 to 49 Years) Aged Out No longer eligible b ased on patient's age to complete this topic Care Teams Marine Electronics Technician Relationship Specialty Start Date End Date Mayra Carrillo APRN [id number] [place] [id number] PCP - General Family Medicine 12/31/23
== END 2024-09-22 11:35 | disposition home or self-care (01) ==
PROVIDERS: Visit Provider Anesthesiology
DX: G90.512 Complex regional pain syndrome I of left upper limb (principal); G90.523 Complex regional pain syndrome I of lower limb, bilateral; Z45.1 Encounter for adjustment and management of infusion pump
CPT/HCPCS: 62370; 99214

== ENCOUNTER → 2024-09-22 10:58 | Outpatient (BNVA) | payer OTHER, SELFPAY | PROVIDERS: Visit Provider Anesthesiology | DX: Z45.1 Encounter for adjustment and management of infusion pump (principal); G90.512 Complex regional pain syndrome I of left upper limb; M21.6X9 Other acquired deformities of unspecified foot; G90.523 Complex regional pain syndrome I of lower limb, bilateral; G89.4 Chronic pain syndrome | CPT/HCPCS: 62370 ==

== ENCOUNTER 2024-11-17 08:52 | Outpatient (AMB) | payer OTHER, SELFPAY ==
--- NOTE | 2024-11-17 08:54 | A.OFFVIS_ITS ---
Vital Signs 11/17/24 08:59 Height 5 ft 7 in Weight 165 lb BMI 25.8 BP 130/74 Blood Pressure Location Lt brachial Position Sitting Pulse 98 Pulse Source Pulse Oximeter Pulse Oximetry (%) 100 Oxygen Delivery Method Room Air Intake Visit Reasons: MEDICATION REVIEW Allergies contrast dye Allergy (Uncoded 11/17/24 08:54) Anaphylaxis HPI Comments Details: Oly is back in my office for pain pump adjustment and general discussion of treatment of her pain. She reports dizziness with pain pump administration of Prialt. It is 1 of the most common side effects of the Prialt however she also reports that she consumes up to 3 gal of water a day. She states that she urinates only 3-4 times a day, she denies nocturia, she reports that her blood pressure constantly low and her normal blood pressure is 90/60. Today in my office her blood pressure is 130/70, I examined her see neuro exam as below I did not find any signs of ataxia or any other neurological conditions. She denies hallucinations which would be terminating event for Prialt therapy. We also discussed today possibility of revision of her spinal cord stimulator. She reports that stimulation of the lower lead positioned in the thoracic spine gives her weakness and jerking sensation unlike. I believe it is because the device is well positioned there I offered her revision of [employer] SCS however in the situation I would need to use the extension to connect the device to [employer] SCS or [employer] SCS and in this situation this will prevent her to go for MRI until the device is in her body. In the past I sent her for the x-ray of the cervical and thoracic spine to evaluate the position of the leads however the patient did not go there. On EMG there is bilateral peroneal nerve neuropathy diagnose. She was approved for [employer] SCS trial from psychological standpoint. She is suffering from Complex regional pain syndrome type 2. However unfortunately the patient has Medtronic spinal cord stimulator positioned in her thoracic and cervical spine. Prior: very pleasant 33 years old female who presents with my office in complains on pain in the left upper extremity as well as pain in bilateral lower extremities. Diagnosis of Complex regional pain syndrome of the left upper extremity and Complex regional pain syndrome of bilateral lower extremities was established in 2019. Left upper extremity CRPS is secondary to work trauma, bilateral lower extremity Complex regional pain syndrome developed after prolonged vaginal delivery. She has working Medtronic spinal cord stimulator 1 lead in the cervical and 1 lead in the thoracic spine. She reports good pain control in the beginning of the time after the refill however she reports fading of the effect of the medicine closer to the next refill. She stated that she was refilled once in 6 months back in [place] where she was residing before she came here. Review of Systems Const All systems reviewed & are unremarkable except as noted in HPI and below ENT Reports Normal hearing present Neuro Reports Normal hearing present, Denies Abnormal speech present, Denies confusion and Denies Sensory deficit (Neuro) Psych Denies confusion Physical Exam Vital Signs: Last Vital Signs Pulse 98 11/17/24 08:59 BP 130/74 11/17/24 08:59 Pulse Ox 100 11/17/24 08:59 Oxygen Delivery Method Room Air 11/17/24 08:59 BMI result Body Mass Index 25.8 Const General: no acute distress; No confusion Orientation/consciousness: patient oriented x3 and No confusion Eyes General: appearance normal, both eyes and all related structures Pupils: Equal, round and reactive pupils present EOM: EOMs intact bilaterally Neck Neck: Yes full ROM Chest Chest palpation & inspection: normal inspection of the chest Resp Effort & Inspection: normal respiratory effort, able to speak in complete sen tences, normal respiratory pattern, no audible wheezes and no cough Cardio Jugular venous distension: no JVD GI Inspection: Yes normal to inspection Neuro Other: Romberg posture is negative. Coordination is appropriate. No ataxia is obser bradley. The patient is able to touch the tip of the nose with each of her index fingers with her eyes closed. Patient is able to stand on 1 ft and slide the other foot against the back of her lower leg bilaterally. There is no changes on 12 cranial nerves General: patient oriented x3, gait normal and No confusion Cranial nerves: Yes CN's II-XII intact bilaterally, Yes Equal, round and reactive pupils present, Yes Nystagmus not present, Yes Normal facial strength present, Yes Symmetric palate elevation present, Yes Normal hearing present, Yes Ability to bilaterally rotate head present and Yes Ability to bilaterally elevate shoulders present Speech: No Abnormal speech present Gait exam (Neuro): Normal gait present Motor exam (neuro): 5/5 motor strength present throughout Sensory Exam: No Sensory deficit (Neuro) Extrem General: No pedal edema Psych Speech and movement: Normal speech and movement present Affect: normal affect Attitude: cooperative Thought process: Normal thought process present Thought content: Normal thought content present Insight: Good insight present (Psych) Judgement: Good judgement present (Psych) Assessment & Plan Assessment & Plan (1) Complex regional pain syndrome i of left upper limb: Code(s): G90.512 - Complex regional pain syndrome I of left upper limb Category: Medical (2) Pes equinus, acquired: Code(s): M21.6X9 - Other acquired deformities of unspecified foot Category: Medical (3) Complex regional pain syndrome i of lower limb, bilateral: Code(s): G90.523 - Complex regional pain syndrome I of lower limb, bilateral Category: Medical (4) Chronic pain syndrome: Code(s): G89.4 - Chronic pain syndrome Category: Medical Plan: Intrathecal pain pump adjustment. I adjusted today intrathecal pain pump for this patient. I increase the dose of morphine to 0.5497 mg a day and this will bring the Prialt to 2.1988 micro g a day. The patient will be watching for side effects of the medication. (5) Implantable intrathecal infusion pump present: Code(s): Z96.89 - Presence of other specified functional implants Category: Medical (6) Malfunction of spinal cord stimulator: Code(s): T85.192A - Other mechanical complication of implanted electronic neurostimulator of spinal cord electrode (lead), initial encounter Category: Medical (7) Diabetes insipidus: Code(s): E23.2 - Diabetes insipidus Category: Medical Plan The patient we will be watching the side effects of her medication. She will be receiving 40% increase of the Prialt medication. If her dizziness will continue and worsened, I will consider terminating Prialt therapy. Also she reports that she drinks 3 gal of water a day. She reports constant and severe thirst, dry mouth, her blood pressure is always 90/60 S she reported today. It could be signs of diabetes insipidus. I will send her for the consult with the endocrinology. I also will see her in 24 days because increase of the dose of this pump resulted in bringing the refill dose closer to the today. Orders: Referrals Endocrinology Referral E23.2 - Diabetes insipidus Patient Instructions: I here by testify that I spent 40 minutes in conversation with this patient as well as planning her care and organizing this note. Coding Level of Care Code Est Pt Level 5 (85320) Diagnoses Complex regional pain syndrome i of left upper limb G90.512 Pes equinus, acquired M21.6X9 Complex regional pain syndrome i of lower limb, bilateral G90.523 Chronic pain syndrome G89.4 Implantable intrathecal infusion pump present Z96.89 Malfunction of spinal cord stimulator T85.192A Diabetes insipidus E23.2
[2024-11-17 08:59] VITALS: BP 130/74; PULSE 98; O2SAT 100; BMI 25.8
--- OUTSIDE RECORDS SUMMARY | 2024-11-17 09:21 | XMS_ITS | Clinical Summary ---
Author Organization [facility] Address [address] [place] [address] Care Team Providers Care Polishing Wheel Setter Name Role Phone Mayra Carrillo APRN Primary Care Provider [phone] Allergies Active Allergy Reactions Criticality Noted Date [...] age to complete this topic Care Teams Polishing Wheel Setter Relationship Specialty Start Date End Date Mayra Carrillo APRN [address] [place] [address] PCP - General Family Medicine 12/31/23
--- OUTSIDE RECORDS SUMMARY | 2024-11-17 09:21 | XMS_ITS | Patient Health Record ---
Author Organization [facility] Address [address] [place] [id number] Care Team Providers Care Customer Response Representative Name Role Phone Self Referral Unavailable Unavailable Allergies Allergen (clinical drug ingredient) Drug/Non Drug Allergy documented on EMR Reaction Allergy Type Onset Date Status bee pollen Bee Pollen anaphylaxis Drug Allergy Act laila egg yolk (chicken) allergenic extract Egg White (Diagnostic) anaphylaxis Drug Allergy Active Adhesive nausea and vomiting Allergy Active Reason For Referral No Information Medications Medication SIG (Take, Route, Frequency, Duration) Notes Start Date End Date Status Morphine 2 mg/ml . Running Intrathecall y at a rate of 0.2499 mg/day Active Magnesium 500 MG 1 capsule with a brayden l Orally Once a day Active Cyclobenzaprine HCl 10 MG 1 tablet at be dtime as needed Orally Once a day for 90 days 12/31/2022 Active EPINEPHrine 0.15 MG/0.3ML as directed In jection as needed Active Ibuprofen 600 MG 1 tablet with food o r milk as needed Orally once a day Active Immunizations Vaccine Route Administration Date Status Comme nts Influenza, seasonal, injecta ble (split), for 3 yrs and up Unknown 11/25/2019 Refused Influenza, seasonal, injecta ble (split), for 3 yrs and up Unknown 06/08/2020 Administered Influenza, seasonal, injecta ble, preservative free, 3 yrs and above Unknown 07/30/2022 Refused Social History Tobacco Use: Social History Observation Description Date Details (start date - stop date) Never Smoker NA - NA Tobacco Use/Smoking Question Answer Notes Are you a: nonsmoker Alcohol Screen (Audit-C) Question Answer Notes Did you have a drink contain ing alcohol in the past year? Yes How often did you have a dri nk containing alcohol in the past year? Monthly or less (1 point) How many drinks did you have on a typical day when you were drinking in the past year? 1 or 2 drinks (0 point) How often did you have 6 or more drinks on one occasion in the past year? Never (0 point) Points 1 Interpretation Negative Tobacco use other than smoking: Question Answer Notes Are you an other tobacco user? No Problems Problem Type SNOMED Code ICD Code Onset Dates Problem Status W/U Status Risk Notes Problem Tachycardia (8996550) Tachycardia, unspecified (R00.0) Active confirmed Problem [id number] Complex regional pain syndrome type 1 of right upper extremity (G90.511) Active confirmed Problem [id number] Complex regional pain syndrome type 1 of left lower extremity (G90.522) Active confirmed Plan Of Treatment No Information Insurance Providers Payer Name Payer Address Payer Phone Subscriber Number Group Number Insured Name Patient Relationship to Insured Coverage Start Date Coverage End Date [facility] [address] [address] [place], [place] [id number] Oly Butcher Self - patient is the insured 3 Medications Administered Medication Instructions Date of Administration Dosage Notes Ondansetron 09/04/2020 4 mg Medical (General) History Medical History History ICD Code Complex regional pain syndrome I of left lower limb G90.522 Complex regional pain syndrome I of righ t upper limb G90.511 Tachycardia, unspecified R00.0 PTSD Migraine without aura Bipolar affective disorder Surgical History Surgery Date(Month/Year) Cholesyectomy SCS Implant (Medtronic) SCS Revision (Medtronic) IT Pump Implant 06/2020 IT Pump revision 08/2020 Gastric Bypass 05-08-21 Gastric Bypass revision 05-12-21 Hysterectomy 03/2022 Hospitalization History Reason Date(Month/Year) Gastric Bypass Pylonephritis 11/05/2019
== END 2024-11-17 09:28 | disposition home or self-care (01) ==
LOC: HO.PMC 08:52
PROVIDERS: Visit Provider Anesthesiology
DX: G90.512 Complex regional pain syndrome I of left upper limb (principal); M21.6X9 Other acquired deformities of unspecified foot; G90.523 Complex regional pain syndrome I of lower limb, bilateral; G89.4 Chronic pain syndrome; Z96.89 Presence of other specified functional implants; T85.192A Other mechanical complication of implanted electronic neurostimulator of spinal cord electrode (lead), initial encounter; E23.2 Diabetes insipidus
CPT/HCPCS: 99215

== ENCOUNTER → 2024-11-17 08:52 | Outpatient (BNVA) | payer OTHER, SELFPAY | PROVIDERS: Visit Provider Anesthesiology ==

== ENCOUNTER 2024-12-12 10:55 | Outpatient (AMB) | payer OTHER, SELFPAY ==
[2024-12-12 11:18] VITALS: BP 104/62; PULSE 96; O2SAT 100; BMI 25.1
--- NOTE | 2024-12-12 11:18 | MHC.OFFVIS ---
Vital Signs 12/12/24 11:18 Height 5 ft 7 in Weight 160 lb BMI 25.1 BP 104/62 Blood Pressure Location Lt brachial Position Sitting Pulse 96 Pulse Source Pulse Oximeter Pulse Oximetry (%) 100 Oxygen Delivery Method Room Air Intake Visit Reasons: ITDD Refill Automotive Electrical Helper Required: No Allergies contrast dye Allergy (Uncoded 12/12/24 11:20) Anaphylaxis Medication List - Last Reconciled 12/12/24 by Elisha Yoon, KLYSTROM TUBE TESTER cyclobenzaprine 10 mg PO BID PRN 30 days leg brace (EMMA Ankle Brace) As directed left foot AFO brace meloxicam 7.5 mg PO ONCE 30 days HPI Comments Details: Oly is back in my office for pain pump refill. She reports today pain level 8/10. However she states that her activity of daily living and mobility greatly increased on Prialt. She is not mentioning any side effects she did not report dizziness. We decided next time increase concentration of the Prialt to 10 micro g per mL this will be 25% increase of the dose. Her next refill will be on 02/15/2025. See report of the refill as below. We also discussed today possibility of revision of her spinal cord stimulator. She reports that stimulation of the lower lead positioned in the thoracic spine gives her weakness and jerking sensation unlike. I believe it is because the device is well positioned there I offered her revision of [employer] SCS however in the situation I would need to use the extension to connect the device to [employer] SCS or [employer] SCS and in this situation this will prevent her to go for MRI until the device is in her body. In the past I sent her for the x-ray of the cervical and thoracic spine to evaluate the position of the leads however the patient did not go there. On EMG there is bilateral peroneal nerve neuropathy diagnose. She was approved for [employer] SCS trial from psychological standpoint. She is suffering from Complex regional pain syndrome type 2. However unfortunately the patient has Medtronic spinal cord stimulator positioned in her thoracic and cervical spine. Prior: very pleasant 33 years old female who presents with my office in complains on pain in the left upper extremity as well as pain in bilateral lower extremities. Diagnosis of Complex regional pain syndrome of the left upper extremity and Complex regional pain syndrome of bilateral lower extremities was established in 2019. Left upper extremity CRPS is secondary to work trauma, bilateral lower extremity Complex regional pain syndrome developed after prolonged vaginal delivery. She has working Medtronic spinal cord stimulator 1 lead in the cervical and 1 lead in the thoracic spine. She reports good pain control in the beginning of the time after the refill however she reports fading of the effect of the medicine closer to the next refill. She stated that she was refilled once in 6 months back in [place] where she was residing before she came here. Review of Systems Const All systems reviewed & are unremarkable except as noted in HPI and below ENT Reports Normal hearing present Neuro Reports Normal hearing present, Denies Abnormal speech present, Denies confusion and Denies Sensory deficit (Neuro) Psych Denies confusion Physical Exam Vital Signs: Last Vital Signs Pulse 96 12/12/24 11:18 BP 104/62 12/12/24 11:18 Pulse Ox 100 12/12/24 11:18 Oxygen Delivery Method Room Air 12/12/24 11:18 BMI result Body Mass Index 25.1 Const General: no acute distress; No confusion Orientation/consciousness: patient oriented x3 and No confusion Eyes General: appearance normal, both eyes and all related structures Pupils: Equal, round and reactive pupils present EOM: EOMs intact bilaterally Neck Neck: Yes full ROM Chest Chest palpation & inspection: normal inspection of the chest Resp Effort & Inspection: normal respiratory effort, able to speak in complete sentences, normal respiratory pattern, no audible wheezes and no cough Cardio Jugular venous distension: no JVD GI Inspection: Yes normal to inspection Neuro Other: Romberg posture is negative. Coordination is appropriate. No ataxia is observed. The patient is able to touch the tip of the nose with each of her index fingers with her eyes closed. Patient is able to stand on 1 ft and slide the other foot against the back of her lower leg bilaterally. There is no changes on 12 cranial nerves General: patient oriented x3, gait normal and No confusion Cranial nerves: Yes CN's II-XII intact bilaterally, Yes Equal, round and reactive pupils present, Yes Nystagmus not present, Yes Normal facial strength present, Yes Symmetric palate elevation present, Yes Normal hearing present, Yes Ability to bilaterally rotate head present and Yes Ability to bilaterally elevate shoulders present Speech: No Abnormal speech present Gait exam (Neuro): Normal gait present Motor exam (neuro): 5/5 motor strength present throughout Sensory Exam: No Sensory deficit (Neuro) Extrem General: No pedal edema Psych Speech and movement: Normal speech and movement present Affect: normal affect Attitude: cooperative Thought process: Normal thought process present Thought content: Normal thought content present Insight: Good insight present (Psych) Judgement: Good judgement present (Psych) Assessment & Plan Assessment & Plan (1) Complex regional pain syndrome i of left upper limb: Code(s): G90.512 - Complex regional pain syndrome I of left upper limb Category: Medical (2) Pes equinus, acquired: Code(s): M21.6X9 - Other acquired deformities of unspecified foot Category: Medical (3) Complex regional pain syndrome i of lower limb, bilateral: Code(s): G90.523 - Complex regional pain syndrome I of lower limb, bilateral Category: Medical (4) Chronic pain syndrome: Code(s): G89.4 - Chronic pain syndrome Category: Medical Plan: Intrathecal pain pump refill Patient presented to the office today?for refill of ITDDD medication The name and date of were verified and informed consent was obtained for the procedure. Time out completed prior to the procedure. The pump was interrogated and the residual amount of fluid was found to be 1.5 ml. Patient was assisted to the exam table and positioned prone.? The area of the intrathecal drug delivery device at right upper buttock exposed; Ultrasound probe applied over the area of the pump, central refill port identified and marked on the skin.?THE AREA OF THE INTRATHECAL PUMP WAS then PREPPED WITH CHLORAPREP.? The sterile fenestrated drape was applied over the area of the pump. Sterile gloves were worn and of the aspiration system was assembled containing 2in 22gauge non-coring needle, the needle was connected to extension tubing which was connected to a 20cc sterile syringe. The pain pump was then palpated under the skin in the patient's right buttock area. The needle was inserted through the skin into the central plug of the pain pump and clear fluid was aspirated.? A total of 1.4 mL of clear fluid was withdrawn into the syringe and discarded by two staff members. [facility] Name and on medication syringe verified with patient prior to instillation. The admixture containing morphine 2 milligrams/mL and Prialt 8 micro grams was compounded by [facility] pharmacy and arrived in a 20cc syringe. The syringe was connected to the bacterial filter, and then to the extension tubing. The medication was slowly instilled into the pump with aspirations at 15cc 10cc and 5cc rojas.? At completion the needle was withdrawn and a Band-Aid was applied to the site. The pump was reprogrammed for the doses continuous dose morphine 0.3741 mg and 1.5 micro g of Prialt a day. (5) Implantable intrathecal infusion pump present: Code(s): Z96.89 - Presence of other specified functional implants Category: Medical (6) Malfunction of spinal cord stimulator: Code(s): T85.192A - Other mechanical complication of implanted electronic neurostimulator of spinal cord electrode (lead), initial encounter Category: Medical Plan 1. Pump refill as above. We will escalate slowly Prialt while decrease dose of the morphine provided the Prialt has no side effects. 2. I will increase the concentration of the Prialt to 10 micro g per mL. This is 25% increase of the concentration. Next refill is on 02/15/2025 Coding Level of Care Code Est Pt Level 3 (83003) Procedure Only Diagnoses Complex regional pain syndrome i of left upper limb G90.512 Pes equinus, acquired M21.6X9 Complex regional pain syndrome i of lower limb, bilateral G90.523 Chronic pain syndrome G89.4 Implantable intrathecal infusion pump present Z96.89 Malfunction of spinal cord stimulator T85.192A
--- OUTSIDE RECORDS SUMMARY | 2024-12-12 12:32 | XMS_ITS | Patient Health Record ---
Author Organization [facility] Address [address] [place] [id number] Care Team Providers Care Release Coordinator Name Role Phone Self Referral Unavailable Unavailable [...] be dtime as needed Orally Once a day; Duration: 90 days 12/31/2022 Active EPINEPHrine 0.15 MG/0.3ML [...] stop date) Never Smoker NA - NA Social History Drugs/Alcohol:0 Social Info Question Answer Notes Alcohol Screen (Audit-C) Did you have a drink containing alcohol in the past year? Yes ?How often did you have a dr ink containing alcohol in the past year? Monthly or less (1 point) ?How many drinks did you hav e on a typical day when you were drinking in the past year? 1 or 2 drinks (0 point) ?How often did you have 6 or more drinks on one occasion in the past year? Never (0 point) Points 1 Interpretation Negative Drugs Have you used drugs other than those for medical reasons in the past 12 months? No Tobacco Use:0 Social Info Question Answer Notes Tobacco Use/Smoking Are you a: nonsmoker Tobacco use other than smoking: Are you an other tobacco user? 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 Caffeine: none Problems Problem Type SNOMED Code ICD Code Onset Dates Problem Status W/U Status Risk Notes Problem Tachycardia (5186575) Tachycardia, unspecified (R00.0) Active confirmed Problem [id number] Complex regional pain syndrome type 1 of right upper extremity (G90.511) Active confirmed Problem [id number] Complex regional pain syndrome type 1 of left lower extremity (G90.522) Active confirmed Plan Of Treatment No Information Insurance Providers Payer Name Payer Address Payer Phone Subscriber Number Group Number Insured Name Patient Relationship to Insured Coverage Start Date Coverage End Date [facility] [address] [address] [place], [place] [id number] Oly Butcher Self - patient is [...]
--- OUTSIDE RECORDS SUMMARY | 2024-12-12 12:32 | XMS_ITS | Clinical Summary ---
Author Organization [facility] Address [address] [place] [address] Care Team Providers Care Rack Pusher Name Role Phone Mayra Carrillo APRN Primary Care Provider [phone] Allergies Active Allergy Reactions Criticality Noted Date Comments Iodinated Contrast Media Anaphylaxis High 12/31/2023 Medications meloxicam (MOBIC) 7.5 MG tablet Take 1 [...] Date Recorded PHQ-2 Total Score 0 12/31/2023 Comments No Sex and Gender Information Value Date Recorded Sex Assigned at Not on file Legal Sex Female 4:06 PM EDT Gender Identity Not on file Sexual Orientation [...] on patient's age to complete this topic Insurance [facility] Care Teams Rack Pusher Relationship Specialty Start Date End Date Mayra Carrillo APRN [address] [id number] PCP - General Family Medicine 12/31/23
== END 2024-12-12 11:25 | disposition home or self-care (01) ==
LOC: HO.PMC 10:55
PROVIDERS: Visit Provider Anesthesiology
DX: G90.512 Complex regional pain syndrome I of left upper limb (principal); M21.6X9 Other acquired deformities of unspecified foot; G90.523 Complex regional pain syndrome I of lower limb, bilateral; G89.4 Chronic pain syndrome; Z45.1 Encounter for adjustment and management of infusion pump; Z96.89 Presence of other specified functional implants; T85.192A Other mechanical complication of implanted electronic neurostimulator of spinal cord electrode (lead), initial encounter
CPT/HCPCS: 62370; 99213

== ENCOUNTER → 2024-12-12 10:55 | Outpatient (BNVA) | payer OTHER, SELFPAY | PROVIDERS: Visit Provider Anesthesiology | DX: G90.512 Complex regional pain syndrome I of left upper limb (principal); M21.6X9 Other acquired deformities of unspecified foot; G90.523 Complex regional pain syndrome I of lower limb, bilateral; G89.4 Chronic pain syndrome; T85.192A Other mechanical complication of implanted electronic neurostimulator of spinal cord electrode (lead), initial encounter; X58.XXXA Exposure to other specified factors, initial encounter; Y93.9 Activity, unspecified; Y92.9 Unspecified place or not applicable; Y99.9 Unspecified external cause status; Z96.89 Presence of other specified functional implants | CPT/HCPCS: 62370 ==

== ENCOUNTER 2025-01-12 08:12 | Outpatient (AMB) | payer OTHER, SELFPAY ==
--- OUTSIDE RECORDS SUMMARY | 2025-01-12 08:19 | XMS_ITS | Clinical Summary ---
Author Organization [facility] Address [address] [place] [address] Care Team Providers Care Drapery Inspector Name Role Phone Mayra Carrillo APRN Primary Care Provider [phone] Allergies Active Allergy Reactions Criticality Noted Date [...] series) 2009 Pap Smear (Ages 21-65) 10/16/2011 COVID-19 Vaccine ( - 2023-2 5 season) 2024 Influenza Vaccine 03/10/2025 HPV Vaccines Aged Out No longer eligi ble based on patient's age to complete this topic Pneumococcal Vaccine: Pediat radha (0-5 Years) and At-Risk Patients (6 to 49 Years) Aged Out No longer eligible b ased on patient's age to complete this topic Insurance [facility] Care Teams Drapery Inspector Relationship Specialty Start Date End Date Mayra Carrillo APRN [id number] [address] PCP - General Family Medicine 12/31/23
--- NOTE | 2025-01-12 08:29 | A.OFFVIS_ITS ---
Vital Signs 01/12/25 08:35 Height 5 ft 7 in Weight 164 lb BMI 25.7 BP 110/76 Blood Pressure Location Lt brachial Position Sitting Intake Visit Reasons: INP-Complex regional pain syndrome Intake Note: Patient referred inhouse by Dr. Clark for complex regional pain syndrome of left upper limb Log Check Scaler Required: No Accompanied by: Self / Same As Patient Allergies contrast dye Allergy (Uncoded 12/12/24 11:20) Anaphylaxis HPI Comments Details: 34y/o female with Complex Regional Pain syndrome comes for evaluation of left foot weakness. 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 A patient fell on her . she had right shoulder dislocation and injury to her right ulnar nerve . she did not recover fully and was diagnosed with CRPS in 2018 . Her symptoms were right chest wall right arm michaelle leg pain , color changes , swelling . she reports left leg weakness and frequent falls due to her legs giving out. she denies nay neck or back pain . she was diagnosed with left foot drop. In 2015 she had an EMG in [place] - not sure os the results but feels her pain increased after EMG> she had a repeat EMG in Jul 2024-This is an abnormal study. 2. 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 3. There is no electrodiagnostic evidence for tibial neuropathy. lumbosacral plexopathy, lumbar radiculopathy, or peripheral neuropathy. she is under care of [facility] . [facility] Surgical History Hx of cholecystectomy Hx of hysterectomy Family History Mother Thyroid cancer Maternal Grandmother Breast cancer Pancreatic cancer Colon cancer Social History Alcohol intake: never Patient Tobacco Use Status: Never used Tobacco Use of substances other than those prescribed or required for medical reasons: No Physical Exam Vital Signs: Last Vital Signs BP 110/76 01/12/25 08:35 BMI result Body Mass Index 25.7 Const General: cooperative, healthy appearing, comfortable and no acute distress Nutritional Appearance: average body habitus Orientation/consciousness: patient oriented x3 Eyes Pupils: Equal, round and reactive pupils present Neck Neck: Yes no meningeal signs Neuro Other: Right eye mild Ptosis with dysconjugate gaze Mild weakness of michaelle knee extension flexion L>R and mild weakness of left dorsiflexion Patient is able to do toe and heel walking without any difficulty No swelling or skin changes in legs and feet Good range of motion in ankles and knees General: patient oriented x3, gait normal, tone normal, moves all extremities and no meningeal signs Cranial nerves: Yes Equal, round and reactive pupils present, Yes Nystagmus not present, Yes Normal facial strength present, Yes Midline tongue present, Yes Symmetric palate elevation present and Yes Ability to bilaterally elevate shoulders present Cognition (Neuro): normal cognition Gait exam (Neuro): Normal gait present Motor exam (neuro): 5/5 motor strength present throughout and Normal motor muscle tone present throughout Deep tendon reflexes (DTR's): Right triceps reflex intensity grade: 2+, Left triceps reflex intensity grade: 2+, Rt Biceps (C5, C6): 2+, Left biceps reflex intensity grade: 2+, Right brachioradialis reflex intensity grade: 1+, Left brachioradialis reflex intensity grade: 1+, Right patellar reflex intensity grade: 2+, Left patellar reflex intensity grade: 2+, Right ankle reflex intensity grade: 1+ and Left ankle reflex intensity grade: 1+ Coordination: [id number] test normal Assessment & Plan Assessment & Plan (1) Complex regional pain syndrome i of lower limb, bilateral: Code(s): G90.523 - Complex regional pain syndrome I of lower limb, bilateral Category: Medical (2) Left leg weakness: Comment: peroneal neuropathy - with very mild weakness Code(s): R29.898 - Other symptoms and signs involving the musculoskeletal system Category: Medical Plan I will refer her to PT for strengthening and gait training. Reassured that her exam was normal. EMG showed michaelle peroneal neuropathy which is likely related to compression AVoid tight clothes , knee braces and avoid crossing legs f/u pain managemnt. Orders: Orders PT Evaluation and Treatment 01/12/25 R29.898 - Other symptoms and signs involving the musculoskeletal system Coding Level of Care Code New Pt Level 4 (53038) Diagnoses Complex regional pain syndrome i of lower limb, bilateral G90.523 Left leg weakness R29.898
[2025-01-12 08:35] VITALS: BP 110/76; BMI 25.7
== END 2025-01-12 09:28 | disposition home or self-care (01) ==
LOC: HO.HSMS 08:12
PROVIDERS: Visit Provider Psychiatry & Neurology Neurology
DX: G90.523 Complex regional pain syndrome I of lower limb, bilateral (principal); R29.898 Other symptoms and signs involving the musculoskeletal system
CPT/HCPCS: 99204

== ENCOUNTER 2025-02-15 14:10 | Outpatient (AMB) | payer OTHER, SELFPAY ==
--- OUTSIDE RECORDS SUMMARY | 2025-02-15 14:49 | XMS_ITS | Clinical Summary ---
Author Organization [facility] Address [address] [place] [address] Care Team Providers Care Commodities Broker Name Role Phone Mayra Carrillo APRN Primary Care Provider [phone] Allergies Active Allergy Reactions Criticality Noted Date [...] Date Diagnosed Date Chronic pain syndrome 12/31/2023 Encounters Date Type Department Care Team Description 01/31/2025 Telephone [facility] [address] [phone] Mayra Carrillo APRN Form Completion from Last 3 Months Family History Medical History Relation Name Comments [...] 84 12/31/2023 1:08 PM EDT Temperature 36.6 C (97.8 F) 12/31/2023 1:08 PM EDT Respiratory Rate 16 12/31/2023 1:08 PM EDT Oxygen Saturation 99% 12/31/2023 1:08 PM EDT Inhaled Oxygen Concentration - - Weight 71.5 kg (157 lb 9.6 oz) 12/31/2023 1:08 P M EDT Height 175.3 cm (5' 9 ) 12/31/2023 1:08 PM EDT Body Mass Index 23.27 12/31/2023 1:08 PM EDT Plan of Treatment Upcoming Encounters Date Type Department Care Team ([facility] st Contact Info) Description 03/08/2025 10:00 AM EDT Office Visit [facility] [address] [phone] Mayra Carrillo APRN [address] [place] [id number] Health Maintenance Due Date Last Done Comments [...] patient's age to complete this topic Insurance [facility] Care Teams Commodities Broker Relationship Specialty Start Date End Date Mayra Carrillo APRN [id number] [address] PCP - General Family Medicine 12/31/23
--- OUTSIDE RECORDS SUMMARY | 2025-02-15 14:49 | XMS_ITS | Patient Health Record ---
Author Organization [facility] Address [address] [place] [id number] Care Team Providers Care Aircraft Log Clerk Name Role Phone Self Referral Unavailable Unavailable [...] End Date Status Morphine 2 mg/ml . IT Running Intratheca lly at a rate of 0.2499 mg/day Active Magnesium 500 MG Tablet 1 capsule with a meal Orally Once a day Active Cyclobenzaprine HCl 10 MG Tablet 1 tablet at bedtime as needed Orally Once a day; Duration: 90 days 12/31/2022 Active EPINEPHrine 0.15 MG/0.3ML Solution Auto-injector as directed Injection as needed Active Ibuprofen 600 MG Tablet 1 tablet with fo od or milk as needed Orally once a day [...] Never Smoker NA - NA Social History Drugs/Alcohol: Social Info Question Answer Notes Alcohol Screen (Audit-C) Did you have a drink containing alcohol in the past year? Yes How often did you have a drink containing alcohol in the past year? Monthly [...] in the past 12 months? No Tobacco Use: Social Info Question Answer Notes Tobacco Use/Smoking Are you a: nonsmoker Tobacco use other than smoking: Are you an other tobacco user? 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 Caffeine: none Problems Problem Type SNOMED Code ICD Code Onset Dates Problem Status W/U Status Risk Notes Problem Tachycardia (7937354) Tachycardia, unspecified (R00.0) Active confirmed Problem Complex regional pain syndrome type I of right upper limb (disorder) (804008397121010 ) Complex regional pain syndrome type 1 of right upper extremity (G90.511) Active confirmed Problem Complex regional pain syndrome type 1 of left lower extremity (G90.522) Active confirmed Plan Of Treatment No Information Insurance Providers Payer Name Payer Address Payer Phone Subscriber Number Group Number Insured Name Patient Relationship to Insured Coverage Start Date Coverage End Date [facility] [address] [place], [place] [id number] Oly Butcher Self - patient is [...]
--- NOTE | 2025-02-15 15:36 | MHC.OFFVIS ---
Intake Visit Reasons: ITDD PUMP FILL Retail Store Assistant Required: No Allergies contrast dye Allergy (Uncoded 12/12/24 11:20) Anaphylaxis HPI Comments Details: Oly is back in my office for pain pump refill. Her activity of daily living and mobility greatly increased on Prialt. She is not mentioning any side effects she did not report dizziness. Today we received the concentration of the Prialt admixture, she is receiving today morphine sulfate 2 milligrams/mL and Prialt 10 micro g per mL. Next time we will fill up her pump at 04/21/2025 with new concentration of admixture containing morphine 2 milligrams/mL and Prialt 13 micro g per mL. We did not discuss today revision of her spinal cord stimulator it looks like that at least at this time her I DDD admixture works well for her condition. On EMG there is bilateral peroneal nerve neuropathy diagnose. She was approved for [employer] SCS trial from psychological standpoint. She is suffering from Complex regional pain syndrome type 2. However unfortunately the patient has [employer]onic spinal cord stimulator positioned in her thoracic and cervical spine. Prior: very pleasant 33 years old female who presents with my office in complains on pain in the left upper extremity as well as pain in bilateral lower extremities. Diagnosis of Complex regional pain syndrome of the left upper extremity and Complex regional pain syndrome of bilateral lower extremities was established in 2019. Left upper extremity CRPS is secondary to work trauma, bilateral lower extremity Complex regional pain syndrome developed after prolonged vaginal delivery. She has working Medtronic spinal cord stimulator 1 lead in the cervical and 1 lead in the thoracic spine. She reports good pain control in the beginning of the time after the refill however she reports fading of the effect of the medicine closer to the next refill. She stated that she was refilled once in 6 months back in [place] where she was residing before she came here. PFSH Surgical History Hx of cholecystectomy Hx of hysterectomy Family History Mother Thyroid cancer Maternal Grandmother Breast cancer Pancreatic cancer Colon cancer Social History Alcohol intake: never Patient Tobacco Use Status: Never used Tobacco Review of Systems Const All systems reviewed & are unremarkable except as noted in HPI and below Physical Exam Const General: cooperative, healthy appearing, comfortable and no acute distress Nutritional Appearance: average body habitus Orientation/consciousness: patient oriented x3 Eyes Pupils: Equal, round and reactive pupils present Neck Neck: Yes no meningeal signs Neuro Other: Right eye mild Ptosis with dysconjugate gaze Mild weakness of michaelle knee extension flexion L>R and mild weakness of left dorsiflexion Patient is able to do toe and heel walking without any difficulty No swelling or skin changes in legs and feet Good range of motion in ankles and knees General: patient oriented x3, gait normal, tone normal, moves all extremities and no meningeal signs Cranial nerves: Yes Equal, round and reactive pupils present, Yes Nystagmus not present, Yes Normal facial strength present, Yes Midline tongue present, Yes Symmetric palate elevation present and Yes Ability to bilaterally elevate shoulders present Cognition (Neuro): normal cognition Gait exam (Neuro): Normal gait present Motor exam (neuro): 5/5 motor strength present throughout and Normal motor muscle tone present throughout Deep tendon reflexes (DTR's): Right triceps reflex intensity grade: 2+, Left triceps reflex intensity grade: 2+, Rt Biceps (C5, C6): 2+, Left biceps reflex intensity grade: 2+, Right brachioradialis reflex intensity grade: 1+, Left brachioradialis reflex intensity grade: 1+, Right patellar reflex intensity grade: 2+, Left patellar reflex intensity grade: 2+, Right ankle reflex intensity grade: 1+ and Left ankle reflex intensity grade: 1+ Coordination: [id number] test normal Assessment & Plan Assessment & Plan (1) Complex regional pain syndrome i of left upper limb: Code(s): G90.512 - Complex regional pain syndrome I of left upper limb Category: Medical (2) Pes equinus, acquired: Code(s): M21.6X9 - Other acquired deformities of unspecified foot Category: Medical (3) Complex regional pain syndrome i of lower limb, bilateral: Code(s): G90.523 - Complex regional pain syndrome I of lower limb, bilateral Category: Medical (4) Chronic pain syndrome: Code(s): G89.4 - Chronic pain syndrome Category: Medical Plan: Intrathecal pain pump refill Patient presented to the office today?for refill of ITDDD medication The name and date of were verified and informed consent was obtained for the procedure. Time out completed prior to the procedure. The pump was interrogated and the residual amount of fluid was found to be 1.6 ml. Patient was assisted to the exam table and positioned prone.? The area of the intrathecal drug delivery device at right upper buttock exposed; Ultrasound probe applied over the area of the pump, central refill port identified and marked on the skin.?THE AREA OF THE INTRATHECAL PUMP WAS then PREPPED WITH CHLORAPREP.? The sterile fenestrated drape was applied over the area of the pump. Sterile gloves were worn and of the aspiration system was assembled containing 2in 22gauge non-coring needle, the needle was connected to extension tubing which was connected to a 20cc sterile syringe. The pain pump was then palpated under the skin in the patient's right buttock area. The needle was inserted through the skin into the central plug of the pain pump and clear fluid was aspirated.? A total of 1.9 mL of clear fluid was withdrawn into the syringe and discarded by two staff members. [facility]. Name and on medication syringe verified with patient prior to instillation. The admixture containing morphine 2 milligrams/mL and Prialt 8 micro grams was compounded by [facility] pharmacy and arrived in a 20cc syringe. The syringe was connected to the bacterial filter, and then to the extension tubing. The medication was slowly instilled into the pump with aspirations at 15cc 10cc and 5cc rojas.? At completion the needle was withdrawn and a Band-Aid was applied to the site. The pump was reprogrammed for the doses continuous dose morphine 0.5497 mg and 2.748 micro g of Prialt a day. (5) Implantable intrathecal infusion pump present: Code(s): Z96.89 - Presence of other specified functional implants Category: Medical (6) Malfunction of spinal cord stimulator: Code(s): T85.192A - Other mechanical complication of implanted electronic neurostimulator of spinal cord electrode (lead), initial encounter Category: Medical Plan 1. Pump refill as above. We will escalate slowly Prialt while decrease dose of the morphine provided the Prialt has no side effects. 2. I will increase the concentration of the Prialt to 13 micro g per mL. This is 25% increase of the concentration. Next refill is on 04/21/2025 Coding Level of Care Code Est Pt Level 3 (89833) Procedure Only Diagnoses Complex regional pain syndrome i of left upper limb G90.512 Pes equinus, acquired M21.6X9 Complex regional pain syndrome i of lower limb, bilateral G90.523 Chronic pain syndrome G89.4 Implantable intrathecal infusion pump present Z96.89 Malfunction of spinal cord stimulator T85.192A
== END 2025-02-15 16:14 | disposition home or self-care (01) ==
LOC: HO.PMC 14:11
PROVIDERS: Visit Provider Anesthesiology
DX: G90.512 Complex regional pain syndrome I of left upper limb (principal); M21.6X9 Other acquired deformities of unspecified foot; G90.523 Complex regional pain syndrome I of lower limb, bilateral; G89.4 Chronic pain syndrome; Z45.1 Encounter for adjustment and management of infusion pump; Z96.89 Presence of other specified functional implants; T85.192A Other mechanical complication of implanted electronic neurostimulator of spinal cord electrode (lead), initial encounter
CPT/HCPCS: 62370; 99213

== ENCOUNTER → 2025-02-15 14:10 | Outpatient (BNVA) | payer OTHER, SELFPAY | PROVIDERS: Visit Provider Anesthesiology | DX: G90.512 Complex regional pain syndrome I of left upper limb (principal); M21.6X9 Other acquired deformities of unspecified foot; G90.523 Complex regional pain syndrome I of lower limb, bilateral; G89.4 Chronic pain syndrome; Z96.89 Presence of other specified functional implants; T85.192A Other mechanical complication of implanted electronic neurostimulator of spinal cord electrode (lead), initial encounter | CPT/HCPCS: 62370 ==

== ENCOUNTER 2025-04-20 08:15 | Outpatient (AMB) | payer OTHER, SELFPAY ==
--- NOTE | 2025-04-20 08:23 | A.OFFVIS_ITS ---
Vital Signs 04/20/25 08:25 Weight 170 lb BP 107/61 Blood Pressure Location Lt brachial Position Sitting Respiration 18 Pulse 97 Pulse Source Pulse Oximeter Pulse Oximetry (%) 97 Oxygen Delivery Method Room Air Intake Visit Reasons: ITDD Refill [place] Rafting Guide Required: No Allergies contrast dye Allergy (Uncoded 12/12/24 11:20) Anaphylaxis HPI Comments Details: Oly is back in my office for pain pump refill. Her activity of daily living and mobility greatly increased on Prialt. She is not mentioning any side effects she did not report dizziness. New medication admixture with morphine 2 milligrams/mL and Prialt 13 micro g per mL was obtained today. She denies any significant pain syndrome at this time. She reports only cramping in mostly bilateral lower extremities but also sometimes in hands. Her PCP checked her magnesium level and it was normal. I recommended to perform frequent stretches, probably yoga exercises. If this will not help the patient's cramps and Charley horses I can consider removing morphine from her pump and replacing it with baclofen. On EMG there is bilateral peroneal nerve neuropathy diagnose. She was approved for [employer] SCS trial from psychological standpoint. She is suffering from Complex regional pain syndrome type 2. However unfortunately the patient has Medtronic spinal cord stimulator positioned in her thoracic and cervical spine. Prior: very pleasant 33 years old female who presents with my office in complains on pain in the left upper extremity as well as pain in bilateral lower extremities. Diagnosis of Complex regional pain syndrome of the left upper extremity and Complex regional pain syndrome of bilateral lower extremities was established in 2019. Left upper extremity CRPS is secondary to work trauma, bilateral lower extremity Complex regional pain syndrome developed after prolonged vaginal delivery. She has working Medtronic spinal cord stimulator 1 lead in the cervical and 1 lead in the thoracic spine. She reports good pain control in the beginning of the time after the refill however she reports fading of the effect of the medicine closer to the next refill. She stated that she was refilled once in 6 months back in [place] where she was residing before she came here. PFSH Surgical History Hx of cholecystectomy Hx of hysterectomy Family History Mother Thyroid cancer Maternal Grandmother Breast cancer Pancreatic cancer Colon cancer Social History Alcohol intake: never Patient Tobacco Use Status: Never used Tobacco Review of Systems Const All systems reviewed & are unremarkable except as noted in HPI and below Physical Exam Vital Signs: Last Vital Signs Pulse 97 04/20/25 08:25 Resp 18 04/20/25 08:25 BP 107/61 04/20/25 08:25 Pulse Ox 97 04/20/25 08:25 Oxygen Delivery Method Room Air 04/20/25 08:25 Const General: cooperative, healthy appearing, comfortable and no acute distress Nutritional Appearance: average body habitus Orientation/consciousness: patient oriented x3 Eyes Pupils: Equal, round and reactive pupils present Neck Neck: Yes no meningeal signs Neuro Other: Right eye mild Ptosis with dysconjugate gaze Mild weakness of michaelle knee extension flexion L>R and mild weakness of left dorsiflexion Patient is able to do toe and heel walking without any difficulty No swelling or skin changes in legs and feet Good range of motion in ankles and knees General: patient oriented x3, gait normal, tone normal, moves all extremities and no meningeal signs Cranial nerves: Yes Equal, round and reactive pupils present, Yes Nystagmus not present, Yes Normal facial strength present, Yes Midline tongue present, Yes Symmetric palate elevation present and Yes Ability to bilaterally elevate shoulders present Cognition (Neuro): normal cognition Gait exam (Neuro): Normal gait present Motor exam (neuro): 5/5 motor strength present throughout and Normal motor muscle tone present throughout Deep tendon reflexes (DTR's): Right triceps reflex intensity grade: 2+, Left triceps reflex intensity grade: 2+, Rt Biceps (C5, C6): 2+, Left biceps reflex intensity grade: 2+, Right brachioradialis reflex intensity grade: 1+, Left brachioradialis reflex intensity grade: 1+, Right patellar reflex intensity grade: 2+, Left patellar reflex intensity grade: 2+, Right ankle reflex intensity grade: 1+ and Left ankle reflex intensity grade: 1+ Coordination: [id number] test normal Assessment & Plan Assessment & Plan (1) Complex regional pain syndrome i of left upper limb: Code(s): G90.512 - Complex regional pain syndrome I of left upper limb Category: Medical (2) Pes equinus, acquired: Code(s): M21.6X9 - Other acquired deformities of unspecified foot Category: Medical (3) Complex regional pain syndrome i of lower limb, bilateral: Code(s): G90.523 - Complex regional pain syndrome I of lower limb, bilateral Category: Medical (4) Chronic pain syndrome: Code(s): G89.4 - Chronic pain syndrome Category: Medical Plan: Intrathecal pain pump refill Patient presented to the office today?for refill of ITDDD medication The name and date of were verified and informed consent was obtained for the procedure. Time out completed prior to the procedure. The pump was interrogated and the residual amount of fluid was found to be 2.0 ml. Patient was assisted to the exam table and positioned prone.? The area of the intrathecal drug delivery device at right upper buttock exposed; Ultrasound probe applied over the area of the pump, central refill port identified and m arked on the skin.?THE AREA OF THE INTRATHECAL PUMP WAS then PREPPED WITH CHLORAPREP.? The sterile fenestrated drape was applied over the area of the pump. Sterile gloves were worn and of the aspiration system was assembled containing 2in 22gauge non-coring needle, the needle was connected to extension tubing which was connected to a 20cc sterile syringe. The pain pump was then palpated under the skin in the patient's right buttock area. The needle was inserted through the skin into the central plug of the pain pump and clear fluid was aspirated.? A total of 2.1 mL of clear fluid was withdrawn into the syringe and discarded by two staff members. Medication for [facility]. Name and on medication syringe verified with patient prior to instillation. The admixture containing morphine 2 milligrams/mL and Prialt 13 micro grams was compounded by [facility] pharmacy and arrived in a 20cc syringe. The syringe was connected to the bacterial filter, and then to the extension tubing. The medication was slowly instilled into the pump with aspirations at 15cc 10cc and 5cc rojas.? At completion the needle was withdrawn and a Band-Aid was applied to the site. The pump was reprogrammed for the doses continuous dose morphine 0.5497 mg and because of the increase of the concentration of the Prialt in the patient's admixture her new dose of the pre out will be 3.573 micro g a day. (5) Implantable intrathecal infusion pump present: Code(s): Z96.89 - Presence of other specified functional implants Category: Medical (6) Malfunction of spinal cord stimulator: Code(s): T85.192A - Other mechanical complication of implanted electronic neurostimulator of spinal cord electrode (lead), initial encounter Category: Medical Plan 1. Pump refill as above. Currently patient is comfortable with her pain syndrome and only complains on intermittent Charley horses. Next time we will continue with Prialt 13 micro g per mL. I am thinking about decreasing morphine concentration and eventually removing morphine from admixture completely. For that I would need to take Prialt a leading medicine. 2. The cramps and Charley horses patient complains on could be dealt with daily stretches and yoga exercises however if this will not help I will consider adding small dose baclofen in her pump. Coding Level of Care Code Est Pt Level 3 (27059) Procedure Only Diagnoses Complex regional pain syndrome i of left upper limb G90.512 Pes equinus, acquired M21.6X9 Complex regional pain syndrome i of lower limb, bilateral G90.523 Chronic pain syndrome G89.4 Implantable intrathecal infusion pump present Z96.89 Malfunction of spinal cord stimulator T85.192A
[2025-04-20 08:25] VITALS: BP 107/61; PULSE 97; RESP 18; O2SAT 97
--- OUTSIDE RECORDS SUMMARY | 2025-04-20 09:08 | XMS_ITS | Clinical Summary ---
Author Organization [facility] Address [address] [place] [address] Care Team Providers Care Structural Iron Erector Name Role Phone Mayra Carrillo APRN Primary Care Provider [phone] Allergies Active Allergy Reactions Criticality Noted Date [...] Type Department Care Team Description 01/31/2025 Telephone [facility] Primary Care [address] [address] Marya Carrillo APRN Form Completion from Last 3 [...] series) 2009 Pap Smear (Ages 21-65) 10/16/2011 HPV Vaccines (1 - 3-dose SCD M series) 2017 COVID-19 Vaccine ( - 2023-2 5 season) 2024 Influenza Vaccine 03/10/2025 Pneumococcal Vaccine: Pediat radha (0-5 Years) and At-Risk Patients (6 to 49 Years) Aged Out No longer eligible b ased on patient's age to complete this topic Insurance [employer] Care Teams Structural Iron Erector Relationship Specialty Start Date End Date Mayra Carrillo APRN [address] [place] [address] PCP - General Family Medicine 12/31/23
--- OUTSIDE RECORDS SUMMARY | 2025-04-20 09:08 | XMS_ITS | Patient Health Record ---
Author Organization [facility] Address [address] [place] [id number] Care Team Providers Care Advice Nurse Name Role Phone Self Referral Unavailable Unavailable [...] Status W/U Status Risk Notes Problem Tachycardia (9206597) Tachycardia, unspecified (R00.0) Active confirmed Problem Complex regional pain syndrome type I of right upper limb (disorder) (144677207811651 ) Complex regional pain syndrome type 1 of right upper extremity (G90.511) Active confirmed Problem Complex regional pain syndrome type I of left lower limb (disorder) (015411110839513 ) Complex regional pain syndrome type 1 of left lower extremity (G90.522) Active confirmed Plan Of Treatment No Information Insurance Providers Payer Name Payer Address Payer Phone Subscriber Number Group Number Insured Name Patient Relationship to Insured Coverage Start Date Coverage End Date [facility] [address] [place], [place] [id number] [phone] [id number] Oly Butcher Self - patient is [...]
--- OUTSIDE RECORDS SUMMARY | 2025-04-20 09:08 | XMS_ITS | Clinical Summary ---
Author Organization [facility] Address [facility] [place] [address] Care Team Providers Care Ladies Suit Operator Name Role Phone Johnathan Spivey MD Primary Care Provider Allergies No known active allergies Medications meloxicam (Mobic) 7.5 mg tablet Take 1 tablet by mouth daily. 30 tablet 3 09/17/2023 Active Social History Tobacco Use Types Packs/Day Years Used Date Smoking Tobacco: Never Assessed Comments Unknown Sex and Gender Information Value Date Recorded Sex Assigned at Not on file Legal Sex Female 2:23 PM EST Gender Identity Not on file Sexual Orientation Not on file Last Filed Vital Signs Vital Sign Reading Time Taken Comments Blood Pressure - - Pulse - - Temperature - - Respiratory Rate - - Oxygen Saturation - - Inhaled Oxygen Concentration - - Weight 69 kg (152 lb 1.6 oz) 09/17/2023 9:00 AM EST Height 171 cm (5' 7.32 ) 09/17/2023 9:00 AM EST Body Mass Index 23.59 09/17/2023 9:00 AM EST Plan of Treatment Health Maintenance Due Date Last Done Comments HIV screen 2008 Hepatitis C Screening 2008 Hepatitis B vaccine (0-59 yrs) and Risk (1) 2009 Tetanus/Diphtheria/Pertussis Vaccines (1 - Tdap) 10/15 HPV test 2020 PAP Smear 2020 Covid-19 Vaccine (1 - 2023- season) 2025 Influenza (Flu) vaccine (1 o f 1 - Influenza standard series) 04/10/2025 Insurance [facility] Care Teams Ladies Suit Operator Relationship Specialty Start Date End Date Johnathan Spivey MD [address] [place] [id number] PCP - General Family Medicine 09/18/23
--- OUTSIDE RECORDS SUMMARY | 2025-04-20 09:08 | XMS_ITS ---
Author Name [facility] Organization Unknown Encounters Encounter Type Encounter Reason Primary Diagnosis Location Date Ambulatory Encounter for general adult medical examination without abnormal findings Encounter for general adult medical examination without abnormal findings appCREAR 12/31/2023 Care Team Organization Name Specialty Phone Email Start Date End Da te [place] [facility] Primary Care 12/31/2023 10/26/2024 [place] [facility] Primary Care 12/31/2023 [place] [employer] [facility] Primary Care 12/17/2023
== END 2025-04-20 08:45 | disposition home or self-care (01) ==
LOC: HO.PMC 08:15
PROVIDERS: Visit Provider Anesthesiology
DX: G90.512 Complex regional pain syndrome I of left upper limb (principal); M21.6X9 Other acquired deformities of unspecified foot; G90.523 Complex regional pain syndrome I of lower limb, bilateral; G89.4 Chronic pain syndrome; Z45.1 Encounter for adjustment and management of infusion pump; T85.192A Other mechanical complication of implanted electronic neurostimulator of spinal cord electrode (lead), initial encounter
CPT/HCPCS: 62370; 99213

== ENCOUNTER → 2025-04-20 08:15 | Outpatient (BNVA) | payer OTHER, SELFPAY | PROVIDERS: Visit Provider Anesthesiology | DX: G90.512 Complex regional pain syndrome I of left upper limb (principal); G90.523 Complex regional pain syndrome I of lower limb, bilateral; G89.4 Chronic pain syndrome; Z96.89 Presence of other specified functional implants | CPT/HCPCS: 62370 ==

== ENCOUNTER 2025-06-22 09:56 | Outpatient (AMB) | payer OTHER, SELFPAY ==
--- NOTE | 2025-06-22 10:47 | MHC.OFFVIS ---
Vital Signs 06/22/25 10:48 Height 5 ft 7 in Weight 177 lb BMI 27.7 BP 113/69 Blood Pressure Location Lt brachial Position Sitting Respiration 16 Pulse 113 H Pulse Source Pulse Oximeter Pulse Oximetry (%) 100 Oxygen Delivery Method Room Air Intake Visit Reasons: ITDD Refill Merchandising Lead Required: No Accompanied by: Self / Same As Patient Allergies contrast dye Allergy (Uncoded 12/12/24 11:20) Anaphylaxis HPI Comments Details: Oly is back in my office for pain pump refill. One over sudden she reported increase of the pain in bilateral lower extremities and return of the swelling into bilateral lower extremities. She reports that the meloxicam helps her swelling. She is currently on Prialt and morphine in her pump. She is on continuous dose only because she does not have PTM device. I decided to increase her dose today significantly to 45%. She came today with 0.5479 mg of morphine and 3.573 micro g of Prialt a day continuous dose. I increased today the dose to 0.7993 mg of morphine and 5.196 micro g of Prialt a day. She is aware of free L side effects. The pump refill is see as below. Next time the patient is here I will increase the concentration of Prialt to 14.3 micro g per mL and morphine to 2.2 milligrams/mL. I also gave the patient telephone number of Iva Combs who might be able to help the patient to obtain the PTM device. On EMG there is bilateral peroneal nerve neuropathy diagnose. She was approved for [employer] SCS trial from psychological standpoint. She is suffering from Complex regional pain syndrome type 2. However unfortunately the patient has Medtronic spinal cord stimulator positioned in her thoracic and cervical spine. Prior: very pleasant 33 years old female who presents with my office in complains on pain in the left upper extremity as well as pain in bilateral lower extremities. Diagnosis of Complex regional pain syndrome of the left upper extremity and Complex regional pain syndrome of bilateral lower extremities was established in 2019. Left upper extremity CRPS is secondary to work trauma, bilateral lower extremity Complex regional pain syndrome developed after prolonged vaginal delivery. She has working Medtronic spinal cord stimulator 1 lead in the cervical and 1 lead in the thoracic spine. She reports good pain control in the beginning of the time after the refill however she reports fading of the effect of the medicine closer to the next refill. She stated that she was refilled once in 6 months back in [place] where she was residing before she came here. PFSH Surgical History Hx of cholecystectomy Hx of hysterectomy Family History Mother Thyroid cancer Maternal Grandmother Breast cancer Pancreatic cancer Colon cancer Social History Alcohol intake: never Patient Tobacco Use Status: Never used Tobacco Review of Systems Const All systems reviewed & are unremarkable except as noted in HPI and below Physical Exam Vital Signs: Last Vital Signs Pulse 113 H 06/22/25 10:48 Resp 16 06/22/25 10:48 BP 113/69 06/22/25 10:48 Pulse Ox 100 06/22/25 10:48 Oxygen Delivery Method Room Air 06/22/25 10:48 BMI result Body Mass Index 27.7 Const General: cooperative, healthy appearing, comfortable and no acute distress Nutritional Appearance: average body habitus Orientation/consciousness: patient oriented x3 Eyes Pupils: Equal, round and reactive pupils present Neck Neck: Yes no meningeal signs Neuro Other: Right eye mild Ptosis with dysconjugate gaze Mild weakness of michaelle knee extension flexion L>R and mild weakness of left dorsiflexion Patient is able to do toe and heel walking without any difficulty No swelling or skin changes in legs and feet Good range of motion in ankles and knees General: patient oriented x3, gait normal, tone normal, moves all extremities and no meningeal signs Cranial nerves: Yes Equal, round and reactive pupils present, Yes Nystagmus not present, Yes Normal facial strength present, Yes Midline tongue present, Yes Symmetric palate elevation present and Yes Ability to bilaterally elevate shoulders present Cognition (Neuro): normal cognition Gait exam (Neuro): Normal gait present Motor exam (neuro): 5/5 motor strength present throughout and Normal motor muscle tone present throughout Deep tendon reflexes (DTR's): Right triceps reflex intensity grade: 2+, Left triceps reflex intensity grade: 2+, Rt Biceps (C5, C6): 2+, Left biceps reflex intensity grade: 2+, Right brachioradialis reflex intensity grade: 1+, Left brachioradialis reflex intensity grade: 1+, Right patellar reflex intensity grade: 2+, Left patellar reflex intensity grade: 2+, Right ankle reflex intensity grade: 1+ and Left ankle reflex intensity grade: 1+ Coordination: [id number] test normal Assessment & Plan Assessment & Plan (1) Complex regional pain syndrome i of left upper limb: Code(s): G90.512 - Complex regional pain syndrome I of left upper limb Category: Medical (2) Pes equinus, acquired: Code(s): M21.6X9 - Other acquired deformities of unspecified foot Category: Medical (3) Complex regional pain syndrome i of lower limb, bilateral: Code(s): G90.523 - Complex regional pain syndrome I of lower limb, bilateral Category: Medical (4) Chronic pain syndrome: Code(s): G89.4 - Chronic pain syndrome Category: Medical Plan: Intrathecal pain pump refill Patient presented to the office today?for refill of ITDDD medication The name and date of were verified and informed consent was obtained for the procedure. Time out completed prior to the procedure. The pump was interrogated and the residual amount of fluid was found to be 2.2 ml. Patient was assisted to the exam table and positioned prone.? The area of the intrathecal drug delivery device at right upper buttock exposed; Ultrasound probe applied over the area of the pump, central refill port identified and marked on the skin.?THE AREA OF THE INTRATHECAL PUMP WAS then PREPPED WITH CHLORAPREP.? The sterile fenestrated drape was applied over the area of the pump. Sterile gloves were worn and of the aspiration system was assembled containing 2in 22gauge non-coring needle, the needle was connected to extension tubing which was connected to a 20cc sterile syringe. The pain pump was then palpated under the skin in the patient's right buttock area. The needle was inserted through the skin into the central plug of the pain pump and clear fluid was aspirated.? A total of 2.2 mL of clear fluid was withdrawn into the syringe and discarded by two staff members. Medication for refill [facility]. Name and on medication syringe verified with patient prior to instillation. The admixture containing morphine 2 milligrams/mL and Prialt 13 micro grams was compounded by [facility] pharmacy and arrived in a 20cc syringe. The syringe was connected to the bacterial filter, and then to the extension tubing. The medication was slowly instilled into the pump with aspirations at 15cc 10cc and 5cc rojas.? At completion the needle was withdrawn and a Band-Aid was applied to the site. The pump was reprogrammed for the doses continuous dose morphine 0.7993 mg a day and 5.196 micro g of Prialt a day. (5) Implantable intrathecal infusion pump present: Code(s): Z96.89 - Presence of other specified functional implants Category: Medical (6) Malfunction of spinal cord stimulator: Code(s): T85.192A - Other mechanical complication of implanted electronic neurostimulator of spinal cord electrode (lead), initial encounter Category: Medical Plan 1. Pump refill as above. patient reports exacerbation of her pain. The dose of the medication was escalated. Next time the patient is here I will increase the concentration of Prialt to 14.3 micro g per mL and morphine to 2.2 milligrams/mL. I will see patient on 08/06/2025. Coding Level of Care Code Est Pt Level 3 (07087) Procedure Only Diagnoses Complex regional pain syndrome i of left upper limb G90.512 Pes equinus, acquired M21.6X9 Complex regional pain syndrome i of lower limb, bilateral G90.523 Chronic pain syndrome G89.4 Implantable intrathecal infusion pump present Z96.89 Malfunction of spinal cord stimulator T85.192A
[2025-06-22 10:48] VITALS: BP 113/69; PULSE 113; RESP 16; O2SAT 100; BMI 27.7
--- OUTSIDE RECORDS SUMMARY | 2025-06-22 11:50 | XMS_ITS | Patient Health Record ---
Author Organization [facility] Address [address] [place] [id number] Care Team Providers Care Core Shaper Sides Name Role Phone Self Referral Unavailable Unavailable [...] Date Status Comme nts Influenza, seasonal, injecta ble, preservative free, 3 yrs and above Unknown 07/30/2022 Refused Influenza, seasonal, injecta ble (split), for 3 yrs and up Unknown 11/25/2019 Refused Influenza, seasonal, injecta ble (split), for 3 yrs and up Unknown 06/08/2020 Administered Social History Tobacco Use: Social History Observation [...] Status W/U Status Risk Notes Problem Tachycardia ([id number]) Tachycardia, unspecified (R00.0) Active confirmed Problem Complex regional pain syndrome type I of right upper limb (disorder) ([id number] ) Complex regional pain syndrome type 1 of right upper extremity (G90.511) Active confirmed Problem Complex regional pain syndrome type I of left lower limb (disorder) ([id number] ) Complex regional pain syndrome type 1 of left lower extremity (G90.522) Active confirmed Plan Of Treatment No Information Insurance Providers Payer Name Payer Address Payer Phone Subscriber Number Group Number Insured Name Patient Relationship to Insured Coverage Start Date Coverage End Date [facility] [address] [place], [place] [id number] Oly Butcher Self - patient is [...]
--- OUTSIDE RECORDS SUMMARY | 2025-06-22 11:50 | XMS_ITS | Clinical Summary ---
Author Organization [facility] Address [address] [place] [address] Care Team Providers Care Meter Repairer Helper Name Role Phone Mayra Carrillo APRN Primary Care Provider [phone] Allergies Active Allergy Reactions Criticality Noted Date [...] Pap Smear (Ages 21-65) 10/16/2011 Influenza Vaccine 03/10/2025 COVID-19 Vaccine ( - 2023-2 5 season) 2025 HPV Vaccines (No Doses Required) Completed Pneumococcal Vaccine: Pediat radha (0-5 Years) and At-Risk Patients (6 to 49 Years) Aged Out No longer eligible b ased on patient's age to complete this topic Insurance [facility] Care Teams Meter Repairer Helper Relationship Specialty Start Date End Date Mayra Carrillo APRN [id number] [address] PCP - General Family Medicine 12/31/23
== END 2025-06-22 11:15 | disposition home or self-care (01) ==
LOC: HO.PMC 09:57
PROVIDERS: Visit Provider Anesthesiology
DX: Z45.1 Encounter for adjustment and management of infusion pump (principal)
CPT/HCPCS: 62370

== ENCOUNTER → 2025-06-22 09:56 | Outpatient (BNVA) | payer OTHER, SELFPAY | PROVIDERS: Visit Provider Anesthesiology | DX: Z45.1 Encounter for adjustment and management of infusion pump (principal); G90.512 Complex regional pain syndrome I of left upper limb; M21.6X9 Other acquired deformities of unspecified foot; G90.523 Complex regional pain syndrome I of lower limb, bilateral; G89.4 Chronic pain syndrome; Z96.89 Presence of other specified functional implants; T85.192A Other mechanical complication of implanted electronic neurostimulator of spinal cord electrode (lead), initial encounter; Z79.891 Long term (current) use of opiate analgesic | CPT/HCPCS: 62370 ==

== ENCOUNTER 2025-08-08 06:59 | Outpatient (REF) | payer OTHER, SELFPAY ==
--- NOTE | ~2025-08-08 | FL_ITS ---
EXAMINATION: FL GUIDANCE ONLY HISTORY: Z96.89 - Presence of other specified functional implants COMPARISON: None available. TECHNIQUE: Fluoroscopy time: 14 seconds. Cumulative Dose: 3.20 mGy. DAP: 676.80 mGycm2 Images: 1. FINDINGS: A single fluoroscopic spot film demonstrates a pump. FL/FL guidance in treatment room IMPRESSION: Fluoroscopy during procedure. Please see procedure report for additional information. Electronically signed by: Felix Luna MD 08/08/2025 02:23 PM [facility]TE
--- OUTSIDE RECORDS SUMMARY | 2025-08-08 08:42 | XMS_ITS | Patient Health Record ---
Author Organization [facility] [place] Address [address] [place] [id number] Care Team Providers Care Food And Beverage Analyst Name Role Phone Self Referral Unavailable Unavailable [...] Status W/U Status Risk Notes Problem Tachycardia (2028956) Tachycardia, unspecified (R00.0) Active confirmed Problem Complex regional pain syndrome type I of right upper limb (disorder) (763775256343569 ) Complex regional pain syndrome type 1 of right upper extremity (G90.511) Active confirmed Problem Complex regional pain syndrome type I of left lower limb (disorder) (487483057630770 ) Complex regional pain syndrome type 1 of left lower extremity (G90.522) Active confirmed Plan Of Treatment No Information Insurance Providers Payer Name Payer Address Payer Phone Subscriber Number Group Number Insured Name Patient Relationship to Insured Coverage Start Date Coverage End Date [facility] [address] [place], [place] [id number] [phone] [id number] Oly Butcher Self - patient is [...]
--- OUTSIDE RECORDS SUMMARY | 2025-08-08 08:42 | XMS_ITS | Clinical Summary ---
Author Organization [facility] Address [address] [place] [address] Care Team Providers Care Hand Shoe Cutter Name Role Phone Mayra Carrillo APRN Primary Care Provider [phone] Allergies Active Allergy Reactions Criticality Noted Date [...] 21-65) 10/16/2011 Influenza Vaccine 03/10/2025 COVID-19 Vaccine (1 - 2024-2 6 season) 2025 HPV Vaccines (No Doses Required) Completed Pneumococcal Vaccine: Pediat radha (0-5 Years) and At-Risk Patients (6 to 49 Years) Aged Out No longer eligible b ased on patient's age to complete this topic Insurance [facility] Care Teams Hand Shoe Cutter Relationship Specialty Start Date End Date Mayra Carrillo APRN [id number] [id number] PCP - General Family Medicine 12/31/23
== END 2025-08-08 07:00 | disposition home or self-care (01) ==
LOC: CF 06:59
PROVIDERS: Visit Provider Anesthesiology
DX: Z45.1 Encounter for adjustment and management of infusion pump (principal); G89.4 Chronic pain syndrome; G90.512 Complex regional pain syndrome I of left upper limb; M21.6X9 Other acquired deformities of unspecified foot; G90.523 Complex regional pain syndrome I of lower limb, bilateral; T85.192A Other mechanical complication of implanted electronic neurostimulator of spinal cord electrode (lead), initial encounter; Z96.89 Presence of other specified functional implants
CPT/HCPCS: 62370

== ENCOUNTER 2025-08-08 10:00 | Outpatient (AMB) | payer OTHER, SELFPAY ==
[2025-08-08 10:18] VITALS: BP 127/74; PULSE 107; RESP 16; O2SAT 100; BMI 27.7
--- NOTE | 2025-08-08 10:18 | A.OFFVIS_ITS ---
Vital Signs 08/08/25 10:18 Height 5 ft 7 in Weight 177 lb BMI 27.7 BP 127/74 Blood Pressure Location Lt brachial Position Sitting Respiration 16 Pulse 107 H Pulse Source Pulse Oximeter Pulse Oximetry (%) 100 Oxygen Delivery Method Room Air Intake Visit Reasons: ITDD REFILL Allergies contrast dye Allergy (Uncoded 12/12/24 11:20) Anaphylaxis HPI Comments Details: Oly is back in my office for pain pump refill. She ran dry this time and her pump is almost empty. I decided to perform the pump refill under x-ray guidance. See the pump refill as below. On EMG there is bilateral peroneal nerve neuropathy diagnose. She was approved for [employer]CS trial from psychological standpoint. She is suffering from Complex regional pain syndrome type 2. However unfortunately the patient has [employer] spinal cord stimulator positioned in her thoracic and cervical spine. Prior: very pleasant 33 years old female who presents with my office in complains on pain in the left upper extremity as well as pain in bilateral lower extremities. Diagnosis of Complex regional pain syndrome of the left upper extremity and Complex regional pain syndrome of bilateral lower extremities was established in 2019. Left upper extremity CRPS is secondary to work trauma, bilateral lower extremity Complex regional pain syndrome developed after prolonged vaginal delivery. She has working Medtronic spinal cord stimulator 1 lead in the cervical and 1 lead in the thoracic spine. She reports good pain control in the beginning of the time after the refill however she reports fading of the effect of the medicine closer to the next refill. She stated that she was refilled once in 6 months back in [place] where she was residing before she came here. PFS Surgical History Hx of cholecystectomy Hx of hysterectomy Family History Mother Thyroid cancer Maternal Grandmother Breast cancer Pancreatic cancer Colon cancer Social History Alcohol intake: never Patient Tobacco Use Status: Never used Tobacco Review of Systems Const All systems reviewed & are unremarkable except as noted in HPI and below Physical Exam Vital Signs: Last Vital Signs Pulse 107 H 08/08/25 10:18 Resp 16 08/08/25 10:18 BP 127/74 08/08/25 10:18 Pulse Ox 100 08/08/25 10:18 Oxygen Delivery Method Room Air 08/08/25 10:18 BMI result Body Mass Index 27.7 Const General: cooperative, healthy appearing, comfortable and no acute distress Nutritional Appearance: average body habitus Orientation/consciousness: patient oriented x3 Eyes Pupils: Equal, round and reactive pupils present Neck Neck: Yes no meningeal signs Neuro Other: Right eye mild Ptosis with dysconjugate gaze Mild weakness of michaelle knee extension flexion L>R and mild weakness of left dorsiflexion Patient is able to do toe and heel walking without any difficulty No swelling or skin changes in legs and feet Good range of motion in ankles and knees General: patient oriented x3, gait normal, tone normal, moves all extremities and no meningeal signs Cranial nerves: Yes Equal, round and reactive pupils present, Yes Nystagmus not present, Yes Normal facial strength present, Yes Midline tongue present, Yes Symmetric palate elevation present and Yes Ability to bilaterally elevate shoulders present Cognition (Neuro): normal cognition Gait exam (Neuro): Normal gait present Motor exam (neuro): 5/5 motor strength present throughout and Normal motor muscle tone present throughout Deep tendon reflexes (DTR's): Right triceps reflex intensity grade: 2+, Left triceps reflex intensity grade: 2+, Rt Biceps (C5, C6): 2+, Left biceps reflex intensity grade: 2+, Right brachioradialis reflex intensity grade: 1+, Left brachioradialis reflex intensity grade: 1+, Right patellar reflex intensity grade: 2+, Left patellar reflex intensity grade: 2+, Right ankle reflex intensity grade: 1+ and Left ankle reflex intensity grade: 1+ Coordination: [id number] test normal Assessment & Plan Assessment & Plan (1) Implantable intrathecal infusion pump present: Code(s): Z96.89 - Presence of other specified functional implants Category: Medical (2) Chronic pain syndrome: Code(s): G89.4 - Chronic pain syndrome Category: Medical Plan: Intrathecal pain pump refill Patient presented to the office today?for refill of ITDDD medication The name and date of were verified and informed consent was obtained for the procedure. Time out completed prior to the procedure. The pump was interrogated and the residual amount of fluid was found to be 0.8 ml. Patient was assisted to the exam table and positioned prone.? The area of the intrathecal drug delivery device at right upper buttock exposed; Ultrasound probe applied over the area of the pump, central refill port identified and marked on the skin.?THE AREA OF THE INTRATHECAL PUMP WAS then PREPPED WITH CHLORAPREP.? The sterile fenestrated drape was applied over the area of the pump. Sterile gloves were worn and of the aspiration system was assembled containing 2in 22gauge non-coring needle, the needle was connected to extension tubing which was connected to a 20cc sterile syringe. The pain pump was then palpated under the skin in the patient's right buttock area. The needle was inserted through the skin into the central plug of the pain pump and clear fluid was aspirated.? A total of 1 mL of clear fluid was withdrawn into the syringe and discarded by two staff members. [facility]. Name and on medication syringe verified with patient prior to instillation. The admixture containing morphine 2 milligrams/mL and Prialt 14.3 micro grams (new concentration) was compounded by [facility] and arrived in a 20cc syringe. The syringe was connected to the bacterial filter, and then to the extension tubing. The medication was slowly instilled into the pump with aspirations at 15cc 10cc and 5cc rojas.? At completion the needle was withdrawn and a Band-Aid was applied to the site. The pump was reprogrammed for the doses continuous dose morphine 0.7993 mg a day and 5.196 micro g of Prialt a day. (3) Complex regional pain syndrome i of left upper limb: Code(s): G90.512 - Complex regional pain syndrome I of left upper limb Category: Medical (4) Pes equinus, acquired: Code(s): M21.6X9 - Other acquired deformities of unspecified foot Category: Medical (5) Complex regional pain syndrome i of lower limb, bilateral: Code(s): G90.523 - Complex regional pain syndrome I of lower limb, bilateral Category: Medical (6) Malfunction of spinal cord stimulator: Code(s): T85.192A - Other mechanical complication of implanted electronic neurostimulator of spinal cord electrode (lead), initial encounter Category: Medical Plan Pump refill as above with the new concentration of Prialt. I will see this patient for next pump refill with the same concentration of the Prialt on 09/21/2025. Orders: Orders FL guidance in treatment room 08/08/25 Z96.89 - Presence of other specified functional implants, G89.4 - Chronic pain syndrome Coding Level of Care Code Est Pt Level 3 (51101) Procedure Only Diagnoses Implantable intrathecal infusion pump present Z96.89 Chronic pain syndrome G89.4 Complex regional pain syndrome i of left upper limb G90.512 Pes equinus, acquired M21.6X9 Complex regional pain syndrome i of lower limb, bilateral G90.523 Malfunction of spinal cord stimulator T85.192A
== END 2025-08-08 11:56 | disposition home or self-care (01) ==
LOC: HO.PMC 10:00
PROVIDERS: Visit Provider Anesthesiology
DX: G89.4 Chronic pain syndrome (principal); G90.512 Complex regional pain syndrome I of left upper limb; Z45.1 Encounter for adjustment and management of infusion pump; M21.6X9 Other acquired deformities of unspecified foot; G90.523 Complex regional pain syndrome I of lower limb, bilateral; Z96.89 Presence of other specified functional implants; T85.192A Other mechanical complication of implanted electronic neurostimulator of spinal cord electrode (lead), initial encounter
CPT/HCPCS: 62370; 99213